=== PATIENT | female | born 1930 | race Caucasian/White ===

== ENCOUNTER 2017-09-05 14:05 | Inpatient (IN) | payer OTHER, BC ==
[2017-09-05 14:20] VITALS: BMI 43.2
[2017-09-05] MEDS ORDERED: SODIUM CHLORIDE 1,000 ML IV STA (14:22)
--- NOTE | 2017-09-05 14:22 | PDOC ---
Rapid Medical Evaluation Time Seen by Provider: 09/05/17 14:10 Medical Evaluation: Allergies Allergy/AdvReac Type Severity Reaction Status Date / Time No Known Allergies Allergy Verified 06/13/14 13:57 I have performed a brief in-person evaluation of this patient. The patient presents with a chief complaint of: SOB, cough, chest pain Pertinent physical exam findings: Diffuse, tight expiratory wheezing across all lung young. Congested sounding cough. Speaks 5 words per breath. I have ordered the following: Labs, EKG, CXR, duoneb, influenza The patient will proceed to the ED for further evaluation. She was sent in by Dr. Mensah for admission for pneumonia. Will most likely need IV steroids.
[2017-09-05] MEDS: ALBUTEROL SO4 2.5/IPRATROPIUM 0.5 INH SOL 3 ML VIAL.NEB. NEB SCH ×4 (14:32→15:15)
[2017-09-05 14:54] LABS: URINE APPEARANCE SLCLOUDY; URINE BILIRUBIN NEGATIVE (NEGATIVE); URINE BLOOD NEGATIVE (NEGATIVE); URINE COLOR YELLOW; URINE GLUCOSE (UA) NEGATIVE (NEGATIVE); URINE KETONE NEGATIVE (NEGATIVE); URINE NITRITE NEGATIVE (NEGATIVE); URINE PROTEIN NEGATIVE (NEGATIVE)
[2017-09-05 14:55] LABS: BASO % 0.3 % (0-2.0); EOS % 1.2 % (0-4.5); HEMATOCRIT 35.8 % (32.4-45.2); HEMOGLOBIN 11.5 GM/dL (10.7-15.3); LYMPH % 26.8 % (8-40); MCH 27.3 pg (25.7-33.7); MCHC 32.2 g/dl (32.0-36.0); MEAN CELL VOLUME 84.6 fl (80-96); MEAN PLT VOLUME 7.3 fl (7.5-11.1); MONO % 10.1 % (3.8-10.2); NEUT % 61.6 % (42.8-82.8); PLATELET COUNT 193 K/MM3 (134-434); RBC 4.23 M/mm3 (3.60-5.2); RDW 15.9 % (11.6-15.6); WHITE BLOOD COUNT 4.9 K/mm3 (4.0-10.0)
[2017-09-05 15:23] LABS: ALBUMIN 2.8 g/dl (3.4-5.0); ANION GAP 7 (8-16); BILIRUBIN,TOTAL 0.4 mg/dL (0.2-1.0); BLOOD UREA NITROGEN 20 mg/dL (7-18); CALCIUM 8.8 mg/dL (8.5-10.1); CHLORIDE 103 mmol/L (98-107); CO2 33 mmol/L (21-32); CREATININE 0.6 mg/dL (0.55-1.02); GLUCOSE,RANDOM 73 mg/dL (74-106); POTASSIUM 4.1 mmol/L (3.5-5.1); SGOT/AST 29 U/L (15-37); SGPT/ALT 13 U/L (12-78); SODIUM 143 mmol/L (136-145); TOT PROT 6.6 g/dl (6.4-8.2)
[2017-09-05 15:25] LABS: ALK PHOS 89 U/L (45-117)
[2017-09-05 15:30] LABS: INR 2.12 (0.82-1.09); PROTHROMBIN TIME (PATIENT) 23.9 SEC (9.98-11.88)
[2017-09-05 15:33] LABS: ACTIVATED PTT 37.1 SECONDS (26.9-34.4)
[2017-09-05 15:39] LABS: URINE LEUK ESTERASE 1+ (NEGATIVE)
[2017-09-05 15:42] LABS: EPI CELLS RARE /HPF (FEW)
--- NOTE | 2017-09-05 16:07 | EKG ---
Test Reason : Blood Pressure : / mmHG Vent. Rate : 057 BPM Atrial Rate : 057 BPM P-R Int : 184 ms QRS Dur : 128 ms QT Int : 476 ms P-R-T Axes : 061 -40 -10 degrees QTc Int : 463 ms SINUS BRADYCARDIA LEFT AXIS DEVIATION RIGHT BUNDLE BRANCH BLOCK MINIMAL VOLTAGE CRITERIA FOR LVH, MAY BE NORMAL VARIANT ABNORMAL ECG WHEN COMPARED WITH ECG OF 13-JUN-2014 15:32, NO SIGNIFICANT CHANGE WAS FOUND Confirmed by SUKUMAR ARCHULETA MD ([id number]) on 09/05/2017 4:06:39 PM Referred By: Confirmed By:SUKUMAR ARCHULETA MD
[2017-09-05] MEDS ORDERED: cefTRIAXone 2 GM/100 ML BAG (PRE-DOCKED) IVPB ONE (19:44)
[2017-09-05] MEDS ORDERED: AZITHROMYCIN IVPB 500 MG in DEXTROSE 5%-WATER - 250 ML IVPB ONE (19:47)
[2017-09-05] MEDS ORDERED: ALBUTEROL SO4 2.5/IPRATROPIUM 0.5 INH SOL 3 ML VIAL.NEB. NEB ONE ×2 (19:49→20:24)
[2017-09-05] MEDS ORDERED: predniSONE 20 MG TABLET (UD) PO ONE (19:52)
[2017-09-05] MEDS ORDERED: MAGNESIUM SULF 50% (8.12 MEQ/2 ML-1 GM VIAL) IVPB ONE (19:57)
--- NOTE | 2017-09-05 20:02 | PDOC ---
History of Present Illness - General Chief Complaint: Respiratory Stated Complaint: CHEST PAIN Time Seen by Provider: 09/05/17 14:10 - History of Present Illness Initial Comments: 09/05/17 20:02 Patient is an 83-year-old female with a history of atrial fibrillation, pulmonary embolism, hyperlipidemia, hypertension, sleep apnea presents with wheezing and shortness of breath since she woke up this morning. Patient had a cold for the past 2 weeks and recently complete a cours of valacyclovir for treratment of shingles, This morning she woke up with difficulty breathing and loud wheezing, She went to see Dr. Vidal who recommended she goes to the ER to get admitted for pneumonia. Patient is still wheezing loudly and looks uncomfortable. Multiple episodes of pneumonia in the past. 09/05/17 20:26 Past History - Past Medical History Allergies/Adverse Reactions: Allergies Allergy/AdvReac Type Severity Reaction Status Date / Time No Known Allergies Allergy Verified 09/05/17 14:20 Home Medications: Ambulatory Orders Atorvastatin Ca [Lipitor] 40 mg PO HS #0 tablet 08/16/13 Docusate Sodium [Colace -] 100 mg PO DAILY #0 capsule 08/16/13 Furosemide [Lasix -] 80 mg PO BIDLASIX #0 tablet 08/16/13 Multivit-Min/FA/Lycopene/Lut [Centrum Silver Tablet] 1 each PO DAILY #0 tablet 08/16/13 Sertraline HCl [Zoloft -] 25 mg PO DAILY #0 tablet 08/16/13 Vitamin B Complex [B Complex] 1 each PO DAILY #0 tablet 08/16/13 Amiodarone HCl [Cordarone -] 100 mg PO DAILY 09/05/17 Cholecalciferol (Vitamin D3) [Vitamin D3] 1,000 unit PO DAILY 09/05/17 Gabapentin 300 mg PO HS 09/05/17 Metoprolol Succinate [Toprol XL -] 25 mg PO DAILY 09/05/17 Potassium Chloride [K-Dur -] 20 meq PO DAILY 09/05/17 Valsartan [Diovan] 80 mg PO DAILY 09/05/17 Warfarin Na [Coumadin -] 0 mg PO DAILY@1800 09/05/17 Anemia: No Asthma: No Cancer: No Cardiac Disorders: Yes (ATRIAL FIBRILLATION) CVA: No COPD: No CHF: No Dementia: No Diabetes: No GI Disorders: No Disorders: Yes (BLADDER INCONTINENCE) HTN: Yes Hypercholesterolemia: Yes Liver Disease: No Seizures: No Thyroid Disease: No - Surgical History Abdominal Surgery: Yes Appendectomy: No Cardiac Surgery: No Cholecystectomy: No Lung Surgery: No Neurologic Surgery: No Orthopedic Surgery: Yes (RT HIP REPLACEMENT 2010, LT KNEE REPLACEMENT 05/16) - Suicide/Smoking/Psychosocial Hx Smoking Status: Yes Smoking History: Former smoker Have you smoked in the past 12 months: No Number of Cigarettes Smoked Daily: 0 If you are a former smoker, when did you quit?: 40 YRS Information on smoking cessation initiated: No Hx Alcohol Use: No Drug/Substance Use Hx: No Substance Use Type: None Hx Substance Use Treatment: No Respiratory Specific PMHX - Complaint Specific PMHX Bronchitis: Yes Pneumonia: No Pulmonary Embolus: No Review of Systems - Review of Systems Able to Perform ROS?: Yes Constitutional: No: Symptoms Reported HEENTM: No: Symptoms Reported Respiratory: Yes: See HPI Cardiac (ROS): No: Symptoms Reported ABD/GI: No: Symptoms Reported : No: Symptoms Reported Musculoskeletal: No: Symptoms Reported Integumentary: No: Symptoms Reported Neurological: No: Symptoms reported All Other Systems: Reviewed and Negative *Physical Exam - Vital Signs Last Vital Signs Temp Pulse Resp BP Pulse Ox 99.5 F 65 18 136/71 96 09/05/17 14:09 09/05/17 18:37 09/05/17 18:37 09/05/17 18:37 09/05/17 18:37 - Physical Exam General Appearance: Yes: Nourished, Appropriately Dressed, Moderate Distress HEENT: positive: EOMI, JOSE, Normal ENT Inspection Neck: negative: Tender Respiratory/Chest: positive: Labored Respiration, Wheezing. negative: Chest Tender Cardiovascular: positive: Regular Rhythm, Regular Rate, S1, S2 Gastrointestinal/Abdominal: positive: Normal Bowel Sounds, Soft, Protuberent. negative: Tender Musculoskeletal: positive: Normal Inspection Extremity: positive: Normal Capillary Refill, Normal Inspection Neurologic: positive: Fully Oriented, Alert, Normal Mood/Affect, Normal Response ED Treatment Course - LABORATORY CBC & Chemistry Diagram: 09/05/17 14:40 09/05/17 14:40 - ADDITIONAL ORDERS Additional order review: Laboratory Results 09/05/17 09/05/17 09/05/17 14:40 14:40 14:40 PT with INR INR PTT (Actin FS) Sodium 143 Potassium 4.1 Chloride 103 Carbon Dioxide 33 H Anion Gap 7 L BUN 20 H Creatinine 0.6 Creat Clearance w eGFR > 60 Random Glucose 73 L D Lactic Acid 0.7 Calcium 8.8 Total Bilirubin 0.4 AST 29 D ALT 13 D Alkaline Phosphatase 89 D Creatine Kinase 72 Troponin I 0.04 Total Protein 6.6 Albumin 2.8 L Urine Color Urine Appearance Urine pH Ur Specific [place] Urine Protein Urine Glucose (UA) Urine Ketones Urine Blood Urine Nitrite Urine Bilirubin Urine Urobilinogen Ur Leukocyte Esterase Urine WBC (Auto) Urine RBC (Auto) Ur Epithelial Cells Blood Type O POSITIVE Antibody Screen Negative 09/05/17 09/05/17 14:40 14:40 PT with INR 23.90 H INR 2.12 H D PTT (Actin FS) 37.1 H Sodium Potassium Chloride Carbon Dioxide Anion Gap BUN Creatinine Creat Clearance w eGFR Random Glucose Lactic Acid Calcium Total Bilirubin AST ALT Alkaline Phosphatase Creatine Kinase Troponin I Total Protein Albumin Urine Color Yellow Urine Appearance Slcloudy Urine pH 6.0 Ur Specific [place] 1.019 Urine Protein Negative Urine Glucose (UA) Negative Urine Ketones Negative Urine Blood Negative Urine Nitrite Negative Urine Bilirubin Negative Urine Urobilinogen 2.0 H Ur Leukocyte Esterase Negative Urine WBC (Auto) 3 Urine RBC (Auto) 14 Ur Epithelial Cells Rare Blood Type Antibody Screen 09/05/17 14:20 Influenza Types A,B Antigen (JULISA) - Final Nasopharyngeal Swab - Final 09/05/17 14:40 RBC 4.23 MCV 84.6 MCHC 32.2 RDW 15.9 H MPV 7.3 L D Neutrophils % 61.6 Lymphocytes % 26.8 D Monocytes % 10.1 Eosinophils % 1.2 Basophils % 0.3 - Medications Given in the ED: ED Medications Discontinued Medications Generic Name Dose Route Start Last Admin Trade Name Freq PRN Reason Stop Dose Admin Albuterol/Ipratropium 1 amp 09/05/17 14:30 09/05/17 15:15 Duoneb - NEB 09/05/17 15:16 1 amp Q15M DANN Administration Sodium Chloride 1,000 mls @ 1,000 mls/hr 09/05/17 14:22 09/05/17 18:18 Normal Saline - IV 09/05/17 15:21 Not Given ASDIR STA Medical Decision Making - Medical Decision Making 09/05/17 20:30 87 with wheezing and sob since waking up this morning. Patient looking extremely short of breath and showing work of breathing One treatment of duoneb by RME who also ordered all admit labs. Repeated duoneb and started antibiotics , prednisone and mag. 09/05/17 22:13 Chest xray: no official read but right lower lobe opacity. Patient admitted to med/surg under Dr. Barrios *DC/Admit/Observation/Transfer Diagnosis at time of Disposition: Pneumonia - Discharge Dispostion Admit: Yes - Referrals - Patient Instructions - Post Discharge Activity
--- NOTE | 2017-09-05 20:23 | PDOC ---
Attending Attestation - Resident Resident Name: Juanito Bennett - ED Attending Attestation I have performed the following: I have examined & evaluated the patient, The case was reviewed & discussed with the resident, I agree w/resident's findings & plan, Exceptions are as noted - HPI HPI: 09/05/17 20:19 Pt sent in by pcp for chest pain and sob. - Physicial Exam PE: 09/05/17 20:45 *Physical Exam General Appearance: Yes: Appropriately Dressed. No: Apparent Distress, Intoxicated HEENT: positive: EOMI, JOSE, Normal ENT Inspection, Normal Voice, TMs Normal, Pharynx Normal. negative: Pale Conjunctivae, Photophobia, Scleral Icterus (R), Scleral Icterus (L) Neck: positive: Trachea midline, Normal Thyroid, Supple. negative: Tender, Rigid, Carotid bruit, Stridor, Lymphadenopathy (R), Lymphadenopathy (L), Thyromegaly Respiratory/Chest: positive: Lungs coarse bilateral BS, with wheezing and rhonchi. + conversational dsypnea, mild distress Cardiovascular: positive: Regular Rhythm, Regular Rate, S1, S2. negative: Edema , JVD, Murmur, Bradycardia, Tachycardia Vascular Pulses: Dorsalis-Pedis (R): 2+, Doralis-Pedis (L): 2+ Gastrointestinal/Abdominal: positive: Normal Bowel Sounds, Flat, Soft. negative : Tender, Organomegaly, Pulsatile Mass, Increased Bowel Sounds, Decreased BS, Distended, Guarding, Rebound, Hernia, Hepatomegaly, Spleenomegaly Lymphatic: negative: Adenopathy, Tenderness Musculoskeletal: positive: Normal Inspection. negative: CVA Tenderness, Decreased Range of Motion Extremity: positive: Normal Capillary Refill, Normal Inspection, Normal Range of Motion, Pelvis Stable. negative: Tender, Pedal Edema, Swelling, Erythema Integumentary: positive: Normal Color, Dry, Warm. negative: Cyanotic, Erythema , Jaundice, Rash Neurologic: positive: life science teacher II-XII NML intact, Fully Oriented, Alert, Normal Mood/ Affect, Motor Strength 5/5. negative: EOM Palsy, Facial Droop, Sensory Deficit - Medical Decision Making 09/05/17 20:48 Pt to be admitted <Jordi Jovel - Last Filed: 09/05/17 20:47> - HPI HPI: The patient is a 87 year old female, with a significant past medical history of atrial fibrillation, pulmonary embolism, hyperlipidemia, hypertension, sleep apnea, who presents to the emergency department sent by Dr. Boyer for pneumonia admission. She reports shortness of breath, chest tightness and wheezing for a few days, worse today. She denies chest pain, headache and dizziness. She denies fever, chills, nausea , vomit, diarrhea and constipation. She denies dysuria, frequency, urgency and hematuria. Allergies: NKDA 09/05/17 20:50 Documentation prepared by Neelam Nava, acting as medical grade shoemaker for Jordi Jovel DO <Neelam Nava - Last Filed: 09/05/17 20:50>
[2017-09-05] MEDS ORDERED: MAGNESIUM SULF 50% (8.12 MEQ/2 ML-1 GM VIAL) ONE (20:24)
[2017-09-05] MEDS ORDERED: predniSONE 20 MG TABLET (UD) ONE (20:24)
[2017-09-05] MEDS ORDERED: CEFTRIAXONE 2 GM/100 ML BAG IVPB ONE (20:24)
[2017-09-05] MEDS ORDERED: AZITHROMYCIN IVPB 250 ML IVPB ONE (20:24)
--- NOTE | 2017-09-05 23:17 | HP ---
CHIEF COMPLAINT: cough, SOB, wheezing PCP: Young HISTORY OF PRESENT ILLNESS: This is an 87 year old female with a past medical history of PNA, Afib, PE, HLD , HTN, sleep apnea presented to the ED with a 2 week history of cough. She states that it has been getting progressively worse and when she awoke this morning she felt extremely SOB. She was treated for shingles 2 weeks ago. She denies chest pain, palpitations. Pt reports c/o constipation, she described her BMs as difficult and the feces as little hard balls. ER course was notable for: (1) WBC 4.9, Lactic Acid 0.7 (2) CXR with RLL density Recent Travel: pt denies PAST MEDICAL HISTORY: Pneumonia pulmonary embolism sleep apnea Atrial fibrillation, HLD, HTN PAST SURGICAL HISTORY: B/L TKR, L THR, L ureter stent Social History: Smoking: "smoked as a young girl" Alcohol: pt denies Drugs: pt denies Family History: mother age 83, DM, PVD father age 80, "water on lungs" 2 brothers in their 70s, unknown med history 1 sister age 87, old age 1 sister and 1 brother alive and well in their 90s Allergies No Known Allergies Allergy (Verified 09/05/17 14:20) HOME MEDICATIONS: 3 Medication Instructions Recorded Atorvastatin Ca [Lipitor] 40 mg PO HS #0 tablet 08/16/13 Docusate Sodium [Colace -] 100 mg PO DAILY #0 capsule 08/16/13 Furosemide [Lasix -] 80 mg PO BIDLASIX #0 tablet 08/16/13 Multivit-Min/FA/Lycopene/Lut 1 each PO DAILY #0 tablet 08/16/13 [Centrum Silver Tablet] Sertraline HCl [Zoloft -] 25 mg PO DAILY #0 tablet 08/16/13 Vitamin B Complex [B Complex] 1 each PO DAILY #0 tablet 08/16/13 Amiodarone HCl [Cordarone -] 100 mg PO DAILY 09/05/17 Cholecalciferol (Vitamin D3) 1,000 unit PO DAILY 09/05/17 [Vitamin D3] Gabapentin 300 mg PO HS 09/05/17 Metoprolol Succinate [Toprol XL -] 25 mg PO DAILY 09/05/17 Potassium Chloride [K-Dur -] 20 meq PO DAILY 09/05/17 Valsartan [Diovan] 80 mg PO DAILY 09/05/17 Warfarin Na [Coumadin -] 0 mg PO DAILY@1800 09/05/17 REVIEW OF SYSTEMS CONSTITUTIONAL: Absent: fever, chills, diaphoresis, generalized weakness, malaise, loss of appetite, weight change HEENT: Absent: rhinorrhea, nasal congestion, throat pain, throat swelling, difficulty swallowing, mouth swelling, ear pain, eye pain, visual changes CARDIOVASCULAR: Absent: chest pain, syncope, palpitations, irregular heart rate, lightheadedness , peripheral edema RESPIRATORY: Present: cough, shortness of breath, dyspnea with exertion, wheezing Absent: orthopnea, stridor, hemoptysis GASTROINTESTINAL: Present: constipation Absent: abdominal pain, abdominal distension, nausea, vomiting, diarrhea, melena , hematochezia GENITOURINARY: Absent: dysuria, frequency, urgency, hesitancy, hematuria, flank pain, genital pain MUSCULOSKELETAL: Absent: myalgia, arthralgia, joint swelling, back pain, neck pain SKIN: Absent: rash, itching, pallor HEMATOLOGIC/IMMUNOLOGIC: Absent: easy bleeding, easy bruising, lymphadenopathy, frequent infections ENDOCRINE: Absent: unexplained weight gain, unexplained weight loss, heat intolerance, cold intolerance NEUROLOGIC: Absent: headache, focal weakness or paresthesias, dizziness, unsteady gait, seizure, mental status changes, bladder or bowel incontinence PSYCHIATRIC: Absent: anxiety, depression, suicidal or homicidal ideation, hallucinations. PHYSICAL EXAMINATION Vital Signs - 24 hr 3 09/05/17 09/05/17 09/05/17 14:09 18:34 18:37 Temperature 99.5 F Pulse Rate 59 L Pulse Rate [ 65 Apical] Respiratory 20 18 Rate Blood Pressure 135/74 Blood Pressure 136/71 [Right Arm] O2 Sat by Pulse 95 96 96 Oximetry (%) GENERAL: Awake, alert, and fully oriented, in no acute distress. HEAD: Normal with no signs of trauma. EYES: Pupils equal, round and reactive to light, extraocular movements intact, sclera anicteric, conjunctiva clear. No lid lag. EARS, NOSE, THROAT: Ears normal, nares patent, oropharynx clear without exudates. Moist mucous membranes. NECK: Normal range of motion, supple without lymphadenopathy, JVD, or masses. LUNGS: Breath sounds with inspiratory and expiratory wheezing bilaterally. No accessory muscle use. HEART: Regular rate and rhythm, normal S1 and S2 without murmur, rub or gallop. ABDOMEN: Soft, nontender, not distended, normoactive bowel sounds, no guarding, no rebound, no masses. No hepatomegaly or splenomegaly. MUSCULOSKELETAL: Normal range of motion at all joints. No bony deformities or tenderness. No CVA tenderness. UPPER EXTREMITIES: 2+ pulses, warm, well-perfused. No cyanosis. No clubbing. No peripheral edema. LOWER EXTREMITIES: 2+ pulses, warm, well-perfused. No calf tenderness. No peripheral edema. NEUROLOGICAL: Cranial nerves II-XII intact. Normal speech. Normal gait. PSYCHIATRIC: Cooperative. Good eye contact. Appropriate mood and affect. SKIN: Warm, dry, normal turgor, no rashes or lesions noted, normal capillary refill. Laboratory Results - last 24 hr 3 09/05/17 09/05/17 09/05/17 14:40 14:40 14:40 WBC 4.9 RBC 4.23 Hgb 11.5 Hct 35.8 MCV 84.6 MCH 27.3 MCHC 32.2 RDW 15.9 H Plt Count 193 MPV 7.3 L D Neutrophils % 61.6 Lymphocytes % 26.8 D Monocytes % 10.1 Eosinophils % 1.2 Basophils % 0.3 PT with INR 23.90 H INR 2.12 H D PTT (Actin FS) 37.1 H Sodium Potassium Chloride Carbon Dioxide Anion Gap BUN Creatinine Creat Clearance w eGFR Random Glucose Lactic Acid Calcium Total Bilirubin AST ALT Alkaline Phosphatase Creatine Kinase Troponin I Total Protein Albumin Urine Color Yellow Urine Appearance Slcloudy Urine pH 6.0 Ur Specific [place] 1.019 Urine Protein Negative Urine Glucose (UA) Negative Urine Ketones Negative Urine Blood Negative Urine Nitrite Negative Urine Bilirubin Negative Urine Urobilinogen 2.0 H Ur Leukocyte Esterase Negative Urine WBC (Auto) 3 Urine RBC (Auto) 14 Ur Epithelial Cells Rare Blood Type Antibody Screen 3 09/05/17 09/05/17 09/05/17 14:40 14:40 14:40 WBC RBC Hgb Hct MCV MCH MCHC RDW Plt Count MPV Neutrophils % Lymphocytes % Monocytes % Eosinophils % Basophils % PT with INR INR PTT (Actin FS) Sodium 143 Potassium 4.1 Chloride 103 Carbon Dioxide 33 H Anion Gap 7 L BUN 20 H Creatinine 0.6 Creat Clearance w eGFR > 60 Random Glucose 73 L D Lactic Acid 0.7 Calcium 8.8 Total Bilirubin 0.4 AST 29 D ALT 13 D Alkaline Phosphatase 89 D Creatine Kinase 72 Troponin I 0.04 Total Protein 6.6 Albumin 2.8 L Urine Color Urine Appearance Urine pH Ur Specific [place] Urine Protein Urine Glucose (UA) Urine Ketones Urine Blood Urine Nitrite Urine Bilirubin Urine Urobilinogen Ur Leukocyte Esterase Urine WBC (Auto) Urine RBC (Auto) Ur Epithelial Cells Blood Type O POSITIVE Antibody Screen Negative ECG Sinus bradycardia vent rate 57, QTC 463 RBBB, left axis deviation minimal voltage criteria for LVH No change when compared with ECG of 06/13/14 Radiology Reports CXR- RL/ML density noted, official read pending ASSESSMENT/PLAN: 87yF with PMH PNA, Afib, PE, HLD, HTN, sleep apnea presented to the ED with a 2 week history of worsening cough and SOB this am. Pneumonia, community acquired - cont ceftriaxone, azithromycin - solumedrol 40mg Q6h for active wheezing - duoneb QID standing with albuterol PRN - consider CT chest Afib/PE - cont home warfarin, therapeutic on same - cont rate control with toprol and amiodarone HTN - cont toprol, diovan and lasix HLD - cont home lipitor Constipation - cont home pericolace - add miralax DVT PPX - cont home coumadin FEN - defer IVF given h/o being on lasix, did not take lasix today, will not give in ED given BUN slightly elevated - BMP in AM - low sodium diet as tolerated. Dispo: Pt currently requires inpatient management of her emergent condition. Visit type - Emergency Visit Emergency Visit: Yes ED Registration Date: 09/05/17 Care time: The patient presented to the Emergency Department on the above date and was hospitalized for further evaluation of their emergent condition. - New Patient This patient is new to me today: Yes Date on this admission: 09/05/17 - Critical Care Critical Care patient: No
[2017-09-05] MEDS ORDERED: methylPREDNISolone NA SUCC 125 MG/2 ML VIAL ONE (23:22)
[2017-09-05] MEDS: methylPREDNISolone NA SUCC 40 MG/1 ML VIAL IVPUSH ONE ×2 (23:36)
[2017-09-06] MEDS ORDERED: WARFARIN NA 2 MG TABLET (UD) PO ONE (00:02)
[2017-09-06] MEDS ORDERED: ALBUTEROL SO4 0.083% IH SOL 2.5 MG/3 ML VIAL.NEB. NEB PRN (00:06)
[2017-09-06] MEDS: methylPREDNISolone NA SUCC 40 MG/1 ML VIAL IVPUSH SCH ×4 (02:34→21:00)
[2017-09-06] MEDS ORDERED: ALBUTEROL SO4 0.083% IH SOL 2.5 MG/3 ML VIAL.NEB. NEB ONE (05:37)
[2017-09-06 07:44] LABS: BASO % 0.1 % (0-2.0); HEMATOCRIT 36.3 % (32.4-45.2); HEMOGLOBIN 11.6 GM/dL (10.7-15.3); INR 2.04 (0.82-1.09); LYMPH % 18.1 % (8-40); MCH 27.1 pg (25.7-33.7); MCHC 32.1 g/dl (32.0-36.0); MEAN CELL VOLUME 84.4 fl (80-96); MEAN PLT VOLUME 7.9 fl (7.5-11.1); MONO % 1.2 % (3.8-10.2); NEUT % 80.6 % (42.8-82.8); PLATELET COUNT 191 K/MM3 (134-434)
[2017-09-06 08:13] LABS: CHLORIDE 102 mmol/L (98-107); POTASSIUM 4.2 mmol/L (3.5-5.1); SODIUM 140 mmol/L (136-145)
[2017-09-06 08:18] LABS: ANION GAP 5 (8-16); BLOOD UREA NITROGEN 14 mg/dL (7-18); CALCIUM 8.3 mg/dL (8.5-10.1); CO2 33 mmol/L (21-32); CREATININE 0.6 mg/dL (0.55-1.02); GLUCOSE,RANDOM 166 mg/dL (74-106); MAGNESIUM 2.5 mg/dL (1.8-2.4); PHOSPHOROUS 3.7 mg/dL (2.5-4.9)
[2017-09-06] MEDS: AMIODARONE HCL 200 MG TABLET (FP) PO SCH (09:57)
[2017-09-06] MEDS: VALSARTAN 80 MG TABLET (UD) PO SCH (10:01)
[2017-09-06] MEDS: POTASSIUM CHLORIDE TABS 20 MEQ TABLET.ER (FP) PO SCH (10:01)
[2017-09-06] MEDS: FUROSEMIDE 40 MG TABLET (FP) PO SCH (10:02)
[2017-09-06] MEDS: POLYETHYLENE GLYCOL 3350 119 GM BTL PO SCH (10:03)
[2017-09-06] MEDS: METOPROLOL SUCCINATE 25 MG TAB.SR.24H (FP) PO SCH (10:03)
[2017-09-06] MEDS: MULTIVITAMINS THER W-MINERALS COMBO TABLET (FP) PO SCH (10:03)
[2017-09-06] MEDS: CHOLECALCIFEROL (VITAMIN D3) 1,000 UNIT TABLET (FP) PO SCH (10:04)
[2017-09-06] MEDS: SERTRALINE HCL 25 MG TABLET (FP) PO SCH (10:04)
[2017-09-06] MEDS: VITAMIN B COMPLEX W/C COMBO TABLET (FP) PO SCH (10:04)
--- NOTE | 2017-09-06 11:13 | PN ---
Progress Note (short form) - Note Progress Note: Patient sen and examined Chart reviewed. Currently sitting up in bed, still coughing and complaining of anterior chest discomfort related to cough. No hemoptysis. Labs, radiologic testing and progress notes reviewed. Selected Entries 09/05/17 09/06/17 09/06/17 14:09 02:00 09:52 Temperature 97.9 F Pulse Rate 75 Respiratory 19 Rate Blood Pressure 135/74 O2 Sat by Pulse 99 Oximetry (%) Oxygen Delivery Nasal Cannula Method Oxygen Flow 2 Rate Weight 214 lb Laboratory Tests 09/05/17 09/05/17 09/06/17 14:40 14:40 07:20 WBC 3.0 L D Hgb 11.6 Hct 36.3 Plt Count 191 INR Sodium Potassium Chloride Carbon Dioxide BUN Creatinine Random Glucose Calcium Phosphorus Magnesium Total Bilirubin 0.4 AST 29 D ALT 13 D Alkaline Phosphatase 89 D Creatine Kinase 72 Troponin I 0.04 Total Protein 6.6 Albumin 2.8 L Urine Color Yellow Urine Appearance Slcloudy Urine pH 6.0 Ur Specific [place] 1.019 Urine Protein Negative Urine Glucose (UA) Negative Urine Ketones Negative Urine Blood Negative Urine Nitrite Negative Urine Bilirubin Negative Urine Urobilinogen 2.0 H Ur Leukocyte Esterase Negative Urine WBC (Auto) 3 Urine RBC (Auto) 14 Ur Epithelial Cells Rare 09/06/17 09/06/17 07:20 07:20 WBC Hgb Hct Plt Count INR 2.04 H Sodium 140 Potassium 4.2 Chloride 102 Carbon Dioxide 33 H BUN 14 D Creatinine 0.6 Random Glucose 166 H D Calcium 8.3 L Phosphorus 3.7 Magnesium 2.5 H Total Bilirubin AST ALT Alkaline Phosphatase Creatine Kinase Troponin I Total Protein Albumin Urine Color Urine Appearance Urine pH Ur Specific [place] Urine Protein Urine Glucose (UA) Urine Ketones Urine Blood Urine Nitrite Urine Bilirubin Urine Urobilinogen Ur Leukocyte Esterase Urine WBC (Auto) Urine RBC (Auto) Ur Epithelial Cells Chest Diffuse expiratory wheezing with increased expiratory phase of respiration Cor Irreg No new murmur Abd Obese Distended non-tender Ext No edema No phlebitis Neuro No new focal deficit Assessment and Plan Acute exacerbation of COPD Possible LLL infiltrate Continue in steroids and antibiotics as ordered AFib On warfarin Follow INR Rate controled Low wbc 3.0 m Re-check Hypoalbuminemia 2.8 Monitor Likely related to acute/chronic disease status as well as nutritional factors Possible right sided CHF HTN Stable HPL Stable BULL Stable Monitor Obesity OA S/P b/l TKRs and Left THR Left ureteral procedure Continue current Rx
--- NOTE | 2017-09-06 13:41 | CON.PULM ---
Consult Consult Specialty:: PULMONARY Referred by:: MARIA G Reason for Consultation:: COUGH/WHEEZE/SOB - History of Present Illness Chief Complaint: COUGH/WHEEZE/SOB History of Present Illness: This is an 87 year old female with a past medical history of PNA, Afib, PE, HLD , HTN, sleep apnea presented to the ED with a 2 week history of cough. She states that it has been getting progressively worse and when she awoke this morning she felt extremely SOB. She was treated for shingles 2 weeks ago. She denies chest pain, palpitations. Patient states she gets ill with breathing problems every year. 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 Cardio/Vascular: Yes: AFIB, CAD, CHF, HTN, Hyperlipdemia Pulmonary: Yes: Sleep Apnea, Other (PE) Gastrointestinal: No: Ascites Hepatobiliary: No: Cirrhosis Renal/: No: Renal Failure Reproductive: Yes: Postmenopausal ...: No Heme/Onc: Yes: Anemia - Alcohol/Substance Use Hx Alcohol Use: No - Smoking History Smoking history: Former smoker Have you smoked in the past 12 months: No Aproximately how many cigarettes per day: 0 If you are a former smoker, when did you quit?: 40 YRS - Social History ADL: Independent Place of : [facility] [employer] History of Recent Travel: No Home Medications - Allergies Allergies/Adverse Reactions: Allergies Allergy/AdvReac Type Severity Reaction Status Date / Time No Known Allergies Allergy Verified 09/05/17 14:20 - Home Medications Home Medications: Ambulatory Orders Atorvastatin Ca [Lipitor] 40 mg PO HS #0 tablet 08/16/13 Docusate Sodium [Colace -] 100 mg PO DAILY #0 capsule 08/16/13 Furosemide [Lasix -] 80 mg PO BIDLASIX #0 tablet 08/16/13 Multivit-Min/FA/Lycopene/Lut [Centrum Silver Tablet] 1 each PO DAILY #0 tablet 08/16/13 Sertraline HCl [Zoloft -] 25 mg PO DAILY #0 tablet 08/16/13 Vitamin B Complex [B Complex] 1 each PO DAILY #0 tablet 08/16/13 Amiodarone HCl [Cordarone -] 100 mg PO DAILY 09/05/17 Cholecalciferol (Vitamin D3) [Vitamin D3] 1,000 unit PO DAILY 09/05/17 Gabapentin 300 mg PO HS 09/05/17 Metoprolol Succinate [Toprol XL -] 25 mg PO DAILY 09/05/17 Potassium Chloride [K-Dur -] 20 meq PO DAILY 09/05/17 Valsartan [Diovan] 80 mg PO DAILY 09/05/17 Warfarin Na [Coumadin -] 0 mg PO DAILY@1800 09/05/17 Family Disease History - Family Disease History Family History: Unremarkable Review of Systems - Review of Systems Constitutional: reports: Lethargy. denies: Fever Eyes: denies: Blurred Vision HENT: denies: Difficult Swallowing Neck: denies: Decreased ROM Cardiovascular: reports: Chest Pain, Edema, Shortness of Breath Respiratory: reports: Cough, Exercise Intolerance, SOB, SOB on Exertion, Wheezing. denies: Hemoptysis Gastrointestinal: denies: Abdominal Pain Genitourinary: denies: Burning Breasts: reports: No Symptoms Reported Musculoskeletal: reports: No Symptoms Integumentary: reports: No Symptoms Neurological: reports: No Symptoms Physical Exam Vital Sings: Vital Signs Temperature 97.9 F 09/06/17 09:52 Pulse Rate 75 09/06/17 09:52 Respiratory Rate 19 09/06/17 09:52 Blood Pressure 135/74 09/06/17 09:52 O2 Sat by Pulse Oximetry (%) 98 09/06/17 09:52 Constitutional: Yes: Mild Distress Eyes: Yes: EOM Intact HENT: Yes: Normocephalic Neck: Yes: Trachea Midline Cardiovascular: Yes: S1, S2 Respiratory: Yes: Poor Air Entry, Wheezes Gastrointestinal: Yes: Normal Bowel Sounds, Soft, Abdomen, Obese Edema: LLE: 2+, RLE: 2+ Neurological: Yes: Alert Labs: CBC, BMP 09/06/17 07:20 09/06/17 07:20 rest reviewed Imaging - Results Chest X-ray: Report Reviewed, Image Reviewed Problem List - Problems (1) Acute bronchitis Code(s): J20.9 - ACUTE BRONCHITIS, UNSPECIFIED (2) Asthma Code(s): J45.909 - UNSPECIFIED ASTHMA, UNCOMPLICATED (3) ASHD (arteriosclerotic heart disease) Code(s): I25.10 - ATHSCL HEART DISEASE OF [place] CORONARY ARTERY W/O ANG PCTRS (4) Atrial fibrillation Code(s): I48.91 - UNSPECIFIED ATRIAL FIBRILLATION (5) HTN (hypertension) Code(s): I10 - ESSENTIAL (PRIMARY) HYPERTENSION Assessment/Plan ACUTE ASTHMATIC BRONCHITIS R/O COMPONENT OF CHF H/O AF/ASHD/DM/HTN/HPL/OBESITY/OSAS IV STEROIDS/BRONCHODILATORS/ANTIBIOTICS DAILY WEIGHTS/NA RESTRICTED DIET/TRIAL OF DIURETICS CHECK BNP/CONSIDER CARDIAC CONSULT Jennifer MEADE MD
[2017-09-06] MEDS: ALBUTEROL SO4 2.5/IPRATROPIUM 0.5 INH SOL 3 ML VIAL.NEB. NEB SCH ×3 (14:50→21:10)
[2017-09-06] MEDS ORDERED: WARFARIN NA 3 MG TABLET PO SCH (18:00)
[2017-09-06] MEDS ORDERED: DOCUSATE SODIUM 100 MG CAPSULE (FP) PO ONE (22:07)
[2017-09-06] MEDS ORDERED: GABAPENTIN 100 MG CAPSULE (FP) ONE ×2 (22:07→22:08)
[2017-09-06] MEDS ORDERED: ATORVASTATIN CA 40 MG TABLET (FP) ONE (22:07)
[2017-09-06] MEDS: DOCUSATE SODIUM 100 MG CAPSULE (FP) PO SCH (22:13)
[2017-09-06] MEDS: ATORVASTATIN CA 40 MG TABLET (FP) PO SCH (22:13)
[2017-09-06] MEDS: GABAPENTIN 300 MG CAPSULE (FP) PO SCH (22:13)
[2017-09-07] MEDS ORDERED: ALBUTEROL SO4 2.5/IPRATROPIUM 0.5 INH SOL 3 ML VIAL.NEB. NEB ONE ×4 (00:24→11:49)
[2017-09-07] MEDS: ALBUTEROL SO4 2.5/IPRATROPIUM 0.5 INH SOL 3 ML VIAL.NEB. NEB SCH ×5 (00:30→23:07)
[2017-09-07] MEDS ORDERED: methylPREDNISolone NA SUCC 40 MG/1 ML VIAL ONE ×3 (01:42→09:42)
[2017-09-07] MEDS: methylPREDNISolone NA SUCC 40 MG/1 ML VIAL IVPUSH SCH ×4 (03:00→21:20)
[2017-09-07 07:57] LABS: INR 3.01 (0.82-1.09)
[2017-09-07 08:04] LABS: ALBUMIN 3.1 g/dl (3.4-5.0); ANION GAP 10 (8-16); BLOOD UREA NITROGEN 21 mg/dL (7-18); CALCIUM 8.5 mg/dL (8.5-10.1); CHLORIDE 102 mmol/L (98-107); CO2 29 mmol/L (21-32); GLUCOSE,RANDOM 136 mg/dL (74-106); MAGNESIUM 2.4 mg/dL (1.8-2.4); POTASSIUM 4.5 mmol/L (3.5-5.1); SODIUM 141 mmol/L (136-145)
[2017-09-07 08:07] LABS: ALK PHOS 84 U/L (45-117); BILIRUBIN,TOTAL 0.4 mg/dL (0.2-1.0); CREATININE 0.8 mg/dL (0.55-1.02); SGOT/AST 29 U/L (15-37); SGPT/ALT 15 U/L (12-78); TOT PROT 7.3 g/dl (6.4-8.2)
[2017-09-07 08:38] LABS: HEMATOCRIT 36.5 % (32.4-45.2); HEMOGLOBIN 11.8 GM/dL (10.7-15.3); MCH 27.6 pg (25.7-33.7); MCHC 32.4 g/dl (32.0-36.0); MEAN CELL VOLUME 85.2 fl (80-96); MEAN PLT VOLUME 8.6 fl (7.5-11.1); RBC 4.28 M/mm3 (3.60-5.2); RDW 15.7 % (11.6-15.6); WHITE BLOOD COUNT 9.7 K/mm3 (4.0-10.0)
--- NOTE | 2017-09-07 09:38 | CON.CARD ---
Cardiology Consult (text) - Consultation Consultation Note: Cardiology Consult Dictated IMP: PAF Chronic PHTN Acute asthmatic bronchitis REC: 1. Acute Bronchitis: Steroid taper as per pulmonary 2. AF: in sinus, continue low dose amio, INR goal 2-3.
--- NOTE | 2017-09-07 10:09 | CONS ---
DATE OF CONSULTATION: 09/07/2017 CONSULTATION REQUESTED BY: Quinton Franco MD, for history of paroxysmal atrial fibrillation. HISTORY: The patient is an 87-year-old female with past medical history of paroxysmal atrial fibrillation on Coumadin, chronic pulmonary hypertension, nonobstructive coronary disease. She is now admitted for several days of expiratory wheezing associated with dry cough. She denies fevers or chills. She denies increased edema, PND, orthopnea. She does have some chest tightness which occurs in the setting of this chronic cough. She was seen and examined by Pulmonary in consultation and admitted acute asthmatic bronchitis. Influenza titers were negative. She is alert and oriented in the ER. PAST MEDICAL HISTORY: As above and also includes obesity, chronic hypertension, neuropathy, vitamin B deficiency, depression, and hyperlipidemia. ALLERGIES: She has no known drug allergies. MEDICATIONS: Her home medications include Coumadin, Diovan 80 mg daily, Neurontin 300 mg daily, vitamin D3, amiodarone 100 daily, vitamin B complex, Zoloft 25 daily, K-Dur supplements, multivitamin, Toprol-XL 25 daily, Lasix 80 mg p.o. b.i.d., Colace, and atorvastatin 40. FAMILY HISTORY: Noncontributory. SOCIAL HISTORY: Former smoker, lives alone. PHYSICAL EXAMINATION: General: Alert and oriented. Vital Signs: Temperature 97.5, blood pressure 132/77, O2 of 98 on 2 L. Neck: No bruits, no JVD. Heart: S1, S2, regular. Chest: Mild expiratory wheezing. No rales. Abdomen: Obese, soft, nontender. Extremities: No edema. CHEST X-RAY: No evidence of CHF or large effusion. No obvious infiltrate. ELECTROCARDIOGRAM: Sinus bradycardia with right bundle branch block, borderline LVH. LABORATORY: White count 9, hematocrit 36.5. Platelet count was 191 yesterday, pending today. INR 3.01. Sodium 141, potassium 4.5. Creatinine 0.8. LFTs normal. CK and troponin were negative x1 set. IMPRESSION: 1. Asthmatic bronchitis. 2. Paroxysmal atrial fibrillation. 3. Chronic pulmonary hypertension. PLAN: 1. Bronchitis: Steroid taper, nebulizers, and supplemental O2 as per Pulmonary. 2. Paroxysmal atrial fibrillation: Currently in sinus. Continue low-dose amiodarone which she has been on chronically for years. Continue Coumadin for INR 2-3. 3. Pulmonary hypertension: Chronic and multifactorial due to obesity, diastolic dysfunction. 4. Continue Lasix. Will follow. Kimberley [id number]
--- NOTE | 2017-09-07 10:44 | PN ---
Progress Note, Physician Chief Complaint: Patient very upset about boarding in the ED and this is her main complaint. Says she is still short of breath with severe coughing. No cp or n/v. - Current Medication List Current Medications: Active Medications Albuterol Sulfate (Ventolin 0.083% Nebulizer Soln -) 1 amp NEB Q4H PRN PRN Reason: SHORT OF BREATH/WHEEZING Last Admin: 09/06/17 06:15 Dose: 1 amp Albuterol/Ipratropium (Duoneb -) 1 amp NEB QIDR [facility] Last Admin: 09/07/17 07:30 Dose: 1 amp Amiodarone HCl (Cordarone -) 100 mg PO DAILY [facility] Last Admin: 09/06/17 09:57 Dose: 100 mg Atorvastatin Calcium (Lipitor -) 40 mg PO HS [facility] Last Admin: 09/06/17 22:13 Dose: 40 mg Cholecalciferol (Vitamin D3 -) 1,000 unit PO DAILY [facility] Last Admin: 09/06/17 10:04 Dose: 1,000 unit Docusate Sodium (Colace -) 200 mg PO HS [facility] Last Admin: 09/06/17 22:13 Dose: 200 mg Furosemide (Lasix -) 80 mg PO DAILY [facility] Last Admin: 09/06/17 10:02 Dose: 80 mg Gabapentin (Neurontin -) 300 mg PO HS [facility] Last Admin: 09/06/17 22:13 Dose: 300 mg Methylprednisolone Sodium Succinate (Solu-Medrol -) 40 mg IVPUSH Q6H-IV [facility] Last Admin: 09/07/17 10:00 Dose: 40 mg Metoprolol Succinate (Toprol Xl -) 25 mg PO DAILY [facility] Last Admin: 09/06/17 10:03 Dose: 25 mg Multivitamins (Total B With C -) 1 each PO DAILY [facility] Last Admin: 09/06/17 10:04 Dose: 1 each Multivitamins/Minerals (Theragran-M) 1 each PO DAILY [facility] Last Admin: 09/06/17 10:03 Dose: 1 each Polyethylene Glycol (Miralax (For Daily Use) -) 17 gm PO DAILY [facility] Last Admin: 09/06/17 10:03 Dose: Not Given Potassium Chloride (K-Dur -) 20 meq PO DAILY [facility] Last Admin: 09/06/17 10:01 Dose: 20 meq Sertraline HCl (Zoloft -) 25 mg PO DAILY [facility] Last Admin: 09/06/17 10:04 Dose: 25 mg Valsartan (Diovan -) 80 mg PO DAILY [facility] Last Admin: 09/06/17 10:01 Dose: 80 mg Warfarin Sodium (Coumadin -) 4 mg PO MoWeFr@1800 [facility] Warfarin Sodium (Coumadin -) 3 mg PO SuTuThSa@1800 [facility] Last Admin: 09/06/17 18:11 Dose: 3 mg - Objective Vital Signs: Vital Signs Temperature 36.4 C L 09/07/17 06:55 Pulse Rate 73 09/07/17 06:55 Respiratory Rate 19 09/06/17 18:00 Blood Pressure 182/79 09/07/17 06:55 O2 Sat by Pulse Oximetry (%) 99 09/07/17 06:55 Constitutional: Yes: Obese (morbid), Other (frustrated on exam) Cardiovascular: Yes: Regular Rate and Rhythm. No: Gallop, Murmur, Rub Respiratory: Yes: Regular, Cough, Diminished, On Nasal O2, Wheezes. No: CTA Bilaterally, Rales, Rhonchi Gastrointestinal: Yes: Normal Bowel Sounds, Soft. No: Distention, Tenderness Extremities: Yes: WNL Edema: Yes Edema: LLE: Trace, RLE: Trace Labs: CBC, BMP 09/07/17 07:20 09/07/17 07:20 INR, PTT INR 3.01 (0.82-1.09) H D 09/07/17 07:20 Problem List - Problems (1) Acute bronchitis Assessment/Plan: -family says unaware of COPD exacerbation -presenting like COPD vs chronic bronchitis -appreciate pulmonary assistance -continue antibiotics, steroids, duonebs -monitor for improvement Code(s): J20.9 - ACUTE BRONCHITIS, UNSPECIFIED Qualifiers: Bronchitis organism: unspecified organism Qualified Code(s): J20.9 - Acute bronchitis, unspecified (2) CHF (congestive heart failure) Assessment/Plan: -not in exacerbation -continue lasix Code(s): I50.9 - HEART FAILURE, UNSPECIFIED Qualifiers: Congestive heart failure type: diastolic Congestive heart failure chronicity: chronic Qualified Code(s): I50.32 - Chronic diastolic (congestive ) heart failure (3) ASHD (arteriosclerotic heart disease) Assessment/Plan: -quiescent -appreciate cardiology assistance and case discussed -continue home regimen Code(s): I25.10 - ATHSCL HEART DISEASE OF [place] CORONARY ARTERY W/O ANG PCTRS (4) Atrial fibrillation Assessment/Plan: -continue amiodarone, toprol xl, and coumadin -monitor INR -rhythm controlled Code(s): I48.91 - UNSPECIFIED ATRIAL FIBRILLATION Qualifiers: Atrial fibrillation type: chronic Qualified Code(s): I48.2 - Chronic atrial fibrillation (5) HTN (hypertension) Assessment/Plan: -elevated, but patient also very upset and anxious today -explained and attempted to calm with limited success -will continue home regimen -will monitor -note that patient is also on high dose steroids which can exacerbate hypertension -may need prn management in the hospital but will re-evaluate if needs adjustment of 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
[2017-09-07] MEDS: VITAMIN B COMPLEX W/C COMBO TABLET (FP) PO SCH (11:07)
[2017-09-07] MEDS: MULTIVITAMINS THER W-MINERALS COMBO TABLET (FP) PO SCH (11:07)
[2017-09-07] MEDS: POTASSIUM CHLORIDE TABS 20 MEQ TABLET.ER (FP) PO SCH (11:07)
[2017-09-07] MEDS: POLYETHYLENE GLYCOL 3350 119 GM BTL PO SCH (11:07)
[2017-09-07] MEDS: CHOLECALCIFEROL (VITAMIN D3) 1,000 UNIT TABLET (FP) PO SCH (11:07)
[2017-09-07] MEDS: SERTRALINE HCL 25 MG TABLET (FP) PO SCH (11:07)
[2017-09-07] MEDS: FUROSEMIDE 40 MG TABLET (FP) PO SCH (11:07)
[2017-09-07] MEDS: AMIODARONE HCL 200 MG TABLET (FP) PO SCH (11:07)
[2017-09-07] MEDS: METOPROLOL SUCCINATE 25 MG TAB.SR.24H (FP) PO SCH (11:07)
[2017-09-07] MEDS: VALSARTAN 80 MG TABLET (UD) PO SCH (11:07)
[2017-09-07] MEDS ORDERED: ALBUTEROL SO4 0.083% IH SOL 2.5 MG/3 ML VIAL.NEB. NEB PRN (12:13)
--- NOTE | 2017-09-07 12:24 | PN ---
Progress Note (short form) - Note Progress Note: PULMONARY VSS/AFEBRILE REMAINS IN ER HOLDING CONTINUES TO COUGH AND WHEEZE ANICTERIC DIFFUSE B/L EXP RHONCHI/WHEEZE S1S2 RSR BS+ OBESE LESS EDEMA B/L LOWER EXT LABS/MEDS/NOTES/IMAGES REVIEWED (1) Acute bronchitis Code(s): J20.9 - ACUTE BRONCHITIS, UNSPECIFIED (2) Asthma Code(s): J45.909 - UNSPECIFIED ASTHMA, UNCOMPLICATED (3) ASHD (arteriosclerotic heart disease) Code(s): I25.10 - ATHSCL HEART DISEASE OF [place] CORONARY ARTERY W/O ANG PCTRS (4) Atrial fibrillation Code(s): I48.91 - UNSPECIFIED ATRIAL FIBRILLATION (5) HTN (hypertension) Code(s): I10 - ESSENTIAL (PRIMARY) HYPERTENSION CONTINUE IV STEROIDS/NEBS/ANTIBIOTICS/O2 SUPPLEMENTATION PATIENT MAY USE HER OWN NIPPV WHICH SHE BROUGHT FROM HOME WILL FOLLOW Jennifer MEADE MD Problem List - Problems (1) Acute bronchitis Code(s): J20.9 - ACUTE BRONCHITIS, UNSPECIFIED (2) Asthma Code(s): J45.909 - UNSPECIFIED ASTHMA, UNCOMPLICATED (3) ASHD (arteriosclerotic heart disease) Code(s): I25.10 - ATHSCL HEART DISEASE OF [place] CORONARY ARTERY W/O ANG PCTRS (4) Atrial fibrillation Code(s): I48.91 - UNSPECIFIED ATRIAL FIBRILLATION (5) HTN (hypertension) Code(s): I10 - ESSENTIAL (PRIMARY) HYPERTENSION
[2017-09-07 13:17] LABS: PLATELET COUNT 236 K/MM3 (134-434)
[2017-09-07 13:23] LABS: ANISOCYTOSIS 1+
[2017-09-07 13:24] LABS: PLATELET ESTIMATE ADEQUATE
[2017-09-07] MEDS ORDERED: CEFTRIAXONE 1 GM/50 ML BAG ONE (13:25)
[2017-09-07] MEDS: CEFTRIAXONE 1 G/50 ML PREMIX 50 ML IVPB SCH (13:35)
[2017-09-07] MEDS ORDERED: WARFARIN NA 2 MG TABLET (UD) PO SCH (18:00)
[2017-09-07] MEDS: ATORVASTATIN CA 40 MG TABLET (FP) PO SCH (21:20)
[2017-09-07] MEDS: GABAPENTIN 300 MG CAPSULE (FP) PO SCH (21:20)
[2017-09-07] MEDS: DOCUSATE SODIUM 100 MG CAPSULE (FP) PO SCH (21:20)
[2017-09-08] MEDS: methylPREDNISolone NA SUCC 40 MG/1 ML VIAL IVPUSH SCH ×3 (02:29→17:05)
[2017-09-08] MEDS: ALBUTEROL SO4 2.5/IPRATROPIUM 0.5 INH SOL 3 ML VIAL.NEB. NEB SCH ×4 (05:48→23:40)
[2017-09-08 08:04] LABS: BASO % 0.1 % (0-2.0); HEMATOCRIT 34.4 % (32.4-45.2); HEMOGLOBIN 11.2 GM/dL (10.7-15.3); LYMPH % 9.6 % (8-40); MCH 27.7 pg (25.7-33.7); MCHC 32.7 g/dl (32.0-36.0); MEAN CELL VOLUME 84.5 fl (80-96); MONO % 2.4 % (3.8-10.2); NEUT % 87.9 % (42.8-82.8); PLATELET COUNT 200 K/MM3 (134-434); RBC 4.07 M/mm3 (3.60-5.2); RDW 15.7 % (11.6-15.6); WHITE BLOOD COUNT 6.5 K/mm3 (4.0-10.0)
[2017-09-08 08:18] LABS: INR 3.58 (0.82-1.09); PROTHROMBIN TIME (PATIENT) 40.5 SEC (9.98-11.88)
[2017-09-08 08:23] LABS: ANION GAP 10 (8-16); BLOOD UREA NITROGEN 27 mg/dL (7-18); CALCIUM 8.8 mg/dL (8.5-10.1); CHLORIDE 101 mmol/L (98-107); CO2 31 mmol/L (21-32); CREATININE 0.8 mg/dL (0.55-1.02); GLUCOSE,RANDOM 125 mg/dL (74-106); MAGNESIUM 2.5 mg/dL (1.8-2.4); POTASSIUM 4.2 mmol/L (3.5-5.1); SODIUM 142 mmol/L (136-145)
--- NOTE | 2017-09-08 08:42 | PN ---
Progress Note (short form) - Note Progress Note: continues to have persistent non productive cough but improved since admission. states she feels she has mucous but unable to expel it. no difficulty ambulating to RN desk. slept well. claims medication compliance with coumadin at home but has has it changed frequently due to labile INR. Denies CP, fver, chills, N/V/C/D Current Medications Generic Name Dose Route Start Last Admin Trade Name Freq PRN Reason Stop Dose Admin Albuterol Sulfate 1 amp 09/07/17 12:13 Ventolin 0.083% Nebulizer Soln - NEB Q1H PRN SHORT OF BREATH/WHEEZING Albuterol/Ipratropium 1 amp 09/06/17 06:00 09/08/17 05:48 Duoneb - NEB 1 amp QIDR DANN Administration Amiodarone HCl 100 mg 09/06/17 10:00 09/07/17 11:07 Cordarone - PO 100 mg DAILY DANN Administration Atorvastatin Calcium 40 mg 09/06/17 22:00 09/07/17 21:20 Lipitor - PO 40 mg HS DANN Administration Cholecalciferol 1,000 unit 09/06/17 10:00 09/07/17 11:07 Vitamin D3 - PO 1,000 unit DAILY DANN Administration Docusate Sodium 200 mg 09/06/17 22:00 09/07/17 21:20 Colace - PO 200 mg HS DANN Administration Furosemide 80 mg 09/06/17 10:00 09/07/17 11:07 Lasix - PO 80 mg DAILY DANN Administration Gabapentin 300 mg 09/06/17 22:00 09/07/17 21:20 Neurontin - PO 300 mg HS DANN Administration CEFTRIAXONE 1 G/50 ML PREMIX 50 mls @ 100 mls/hr 09/07/17 12:15 09/07/17 13: 35 Ceftriaxone 1 Gm-D5w Bag IVPB 100 mls/hr DAILY DANN Administration Methylprednisolone Sodium Succinate 40 mg 09/06/17 03:00 09/08/17 02:29 Solu-Medrol - IVPUSH 40 mg Q6H-IV DANN Administration Metoprolol Succinate 25 mg 09/06/17 10:00 09/07/17 11:07 Toprol Xl - PO 25 mg DAILY [facility] Administration Multivitamins 1 each 09/06/17 10:00 01/05/18 11:07 Total B With C - PO 1 each DAILY [facility] Administration Multivitamins/Minerals 1 each 09/06/17 10:00 09/07/17 11:07 Theragran-M PO 1 each DAILY [facility] Administration Polyethylene Glycol 17 gm 09/06/17 10:00 09/07/17 11:07 Miralax (For Daily Use) - PO Not Given DAILY [facility] Potassium Chloride 20 meq 09/06/17 10:00 09/07/17 11:07 K-Dur - PO 20 meq DAILY [facility] Administration Sertraline HCl 25 mg 09/06/17 10:00 09/07/17 11:07 Zoloft - PO 25 mg DAILY [facility] Administration Valsartan 80 mg 09/06/17 10:00 09/07/17 11:07 Diovan - PO 80 mg DAILY [facility] Administration Warfarin Sodium 4 mg 09/07/17 18:00 09/07/17 18:46 Coumadin - PO 4 mg MoWeFr@1800 [facility] Administration Warfarin Sodium 3 mg 09/06/17 18:00 09/06/17 18:11 Coumadin - PO 3 mg SuTuThSa@1800 [facility] Administration Last Vital Signs Temp Pulse Resp BP Pulse Ox 98.8 F 82 16 159/88 96 09/08/17 08:31 09/08/17 08:31 09/08/17 08:31 09/08/17 08:31 09/08/17 00:42 General NAD CV S1 S2 + Lungs scattered expiratory wheezing, no crackles. poor inspiratory effort Abdomen soft NT/ND Extremities trace pitting edema CBCD WBC 6.5 K/mm3 (4.0-10.0) D 09/08/17 06:20 RBC 4.07 M/mm3 (3.60-5.2) 09/08/17 06:20 Hgb 11.2 GM/dL (10.7-15.3) 09/08/17 06:20 Hct 34.4 % (32.4-45.2) 09/08/17 06:20 MCV 84.5 fl (80-96) 09/08/17 06:20 MCHC 32.7 g/dl (32.0-36.0) 09/08/17 06:20 RDW 15.7 % (11.6-15.6) H 09/08/17 06:20 Plt Count 200 K/MM3 (134-434) 09/08/17 06:20 MPV 8.0 fl (7.5-11.1) 09/08/17 06:20 CMP Sodium 142 mmol/L (136-145) 09/08/17 06:20 Potassium 4.2 mmol/L (3.5-5.1) 09/08/17 06:20 Chloride 101 mmol/L (98-107) 09/08/17 06:20 Carbon Dioxide 31 mmol/L (21-32) 09/08/17 06:20 Anion Gap 10 (8-16) 09/08/17 06:20 BUN 27 mg/dL (7-18) H D 09/08/17 06:20 Creatinine 0.8 mg/dL (0.55-1.02) 09/08/17 06:20 Creat Clearance w eGFR > 60 (>60) 09/07/17 07:20 Calcium 8.8 mg/dL (8.5-10.1) 09/08/17 06:20 Total Bilirubin 0.4 mg/dL (0.2-1.0) 09/07/17 07:20 AST 29 U/L (15-37) 09/07/17 07:20 ALT 15 U/L (12-78) 09/07/17 07:20 Alkaline Phosphatase 84 U/L (45-117) 09/07/17 07:20 Total Protein 7.3 g/dl (6.4-8.2) 09/07/17 07:20 Albumin 3.1 g/dl (3.4-5.0) L 09/07/17 07:20 Microbiology 09/05/17 14:40 Blood - Peripheral Venous Blood Culture - Preliminary Pending Organism 09/05/17 14:40 Blood - Peripheral Venous Blood Culture - Preliminary NO GROWTH OBTAINED AFTER 48 HOURS, INCUBATION TO CONTINUE FOR 3 DAYS. 09/05/17 14:40 Urine - Urine Clean Catch Urine Culture - Final Contaminated: Please Repeat 09/05/17 14:20 Nasopharyngeal Swab Influenza Types A,B Antigen (JULISA) - Final 09/05/17 14:20 Nasopharyngeal Swab - Final Assesment and Plan: 87 year old female with a past medical history of PNA, Afib, PE, HLD, HTN, sleep apnea presented to the ED with a 2 week history of cough 1. Acute COPD exacerbation vs bronchitis-clinically improved. saturating 96% on RA. will decrease solumedrol to 40mg Q8H, cont ceftriaxone. start chest PT. pulmonary on board. cont nebs. will need PFT done as outpatient once medically improved 2. Elevated INR- hold coumadin. repeat in AM 3. +BCx- +GPC in clusters only in 1 bottle. likely contaminate. will give vanco x1 and repeat Bcx. hold on ID consult pending results of repeat 4. Elevated BUN- likely due to steroid use. no signs of bleeding. 5. HTN- slightly above goal. can be due to steroids. will cont for now and monitor as steroids are titrated 6. BULL- has home cpap 7. afib- on coumadin. held for now due to elevated INR. cont metoprolol 8. PE- on coumadin 9. DVT ppx- on coumadin Visit type - Emergency Visit Emergency Visit: Yes ED Registration Date: 09/05/17 Care time: The patient presented to the Emergency Department on the above date and was hospitalized for further evaluation of their emergent condition. - New Patient This patient is new to me today: Yes Date on this admission: 09/08/17 - Critical Care Critical Care patient: No - Discharge Referral Referred to [facility] Med [facility] No
[2017-09-08] MEDS: CEFTRIAXONE 1 G/50 ML PREMIX 50 ML IVPB SCH (10:22)
--- NOTE | 2017-09-08 10:22 | PN ---
Progress Note, Physician Chief Complaint: sleeping comfortably History of Present Illness: still coughing, feeling slightly better - Current Medication List Current Medications: Active Medications Albuterol Sulfate (Ventolin 0.083% Nebulizer Soln -) 1 amp NEB Q1H PRN PRN Reason: SHORT OF BREATH/WHEEZING Albuterol/Ipratropium (Duoneb -) 1 amp NEB QIDR [facility] Last Admin: 09/08/17 05:48 Dose: 1 amp Amiodarone HCl (Cordarone -) 100 mg PO DAILY [facility] Last Admin: 09/07/17 11:07 Dose: 100 mg Atorvastatin Calcium (Lipitor -) 40 mg PO HS [facility] Last Admin: 09/07/17 21:20 Dose: 40 mg Cholecalciferol (Vitamin D3 -) 1,000 unit PO DAILY [facility] Last Admin: 09/07/17 11:07 Dose: 1,000 unit Docusate Sodium (Colace -) 200 mg PO HS [facility] Last Admin: 09/07/17 21:20 Dose: 200 mg Furosemide (Lasix -) 80 mg PO DAILY [facility] Last Admin: 09/07/17 11:07 Dose: 80 mg Gabapentin (Neurontin -) 300 mg PO HS [facility] Last Admin: 09/07/17 21:20 Dose: 300 mg CEFTRIAXONE 1 G/50 ML PREMIX (Ceftriaxone 1 Gm-D5w Bag) 50 mls @ 100 mls/hr IVPB DAILY [facility] Last Admin: 09/07/17 13:35 Dose: 100 mls/hr Vancomycin HCl 1,000 mg/ (Dextrose) 250 mls @ 200 mls/hr IVPB ONCE ONE Stop: 09/08/17 12:14 Methylprednisolone Sodium Succinate (Solu-Medrol -) 40 mg IVPUSH Q8H-IV [facility] Metoprolol Succinate (Toprol Xl -) 25 mg PO DAILY [facility] Last Admin: 09/07/17 11:07 Dose: 25 mg Multivitamins (Total B With C -) 1 each PO DAILY [facility] Last Admin: 09/07/17 11:07 Dose: 1 each Multivitamins/Minerals (Theragran-M) 1 each PO DAILY [facility] Last Admin: 09/07/17 11:07 Dose: 1 each Polyethylene Glycol (Miralax (For Daily Use) -) 17 gm PO DAILY [facility] Last Admin: 09/07/17 11:07 Dose: Not Given Potassium Chloride (K-Dur -) 20 meq PO DAILY [facility] Last Admin: 09/07/17 11:07 Dose: 20 meq Sertraline HCl (Zoloft -) 25 mg PO DAILY [facility] Last Admin: 09/07/17 11:07 Dose: 25 mg Valsartan (Diovan -) 80 mg PO DAILY [facility] Last Admin: 09/07/17 11:07 Dose: 80 mg - Objective Vital Signs: Vital Signs Temperature 98.8 F 09/08/17 08:31 Pulse Rate 82 09/08/17 08:31 Respiratory Rate 16 09/08/17 08:31 Blood Pressure 159/88 09/08/17 08:31 O2 Sat by Pulse Oximetry (%) 96 09/08/17 00:42 Constitutional: Yes: Calm Cardiovascular: Yes: Regular Rate and Rhythm Respiratory: Yes: Rhonchi, Wheezes Gastrointestinal: Yes: Soft, Abdomen, Obese Edema: No Neurological: Yes: Alert, Oriented ...Motor Strength: WNL Labs: CBC, BMP 09/08/17 06:20 09/08/17 06:20 INR, PTT INR 3.58 (0.82-1.09) H 09/08/17 06:20 Laboratory Tests 09/08/17 09/08/17 09/08/17 06:20 06:20 06:20 WBC 6.5 D Hgb 11.2 Plt Count 200 INR 3.58 H Potassium 4.2 Creatinine 0.8 Magnesium 2.5 H Assessment/Plan IMP: PAF Chronic PHTN Acute asthmatic bronchitis Bacteremia: 09/06 ?contaminant REC: 1. Acute Bronchitis: Steroid taper as per pulmonary 2. AF: in sinus, continue low dose amio, INR goal 2-3. 3. Serial cultures, suspect contaminant. Abx for now as per PMD
[2017-09-08] MEDS: AMIODARONE HCL 200 MG TABLET (FP) PO SCH (10:23)
[2017-09-08] MEDS: VALSARTAN 80 MG TABLET (UD) PO SCH (10:24)
[2017-09-08] MEDS: CHOLECALCIFEROL (VITAMIN D3) 1,000 UNIT TABLET (FP) PO SCH (10:25)
[2017-09-08] MEDS: METOPROLOL SUCCINATE 25 MG TAB.SR.24H (FP) PO SCH (10:25)
[2017-09-08] MEDS: FUROSEMIDE 40 MG TABLET (FP) PO SCH (10:25)
[2017-09-08] MEDS: VITAMIN B COMPLEX W/C COMBO TABLET (FP) PO SCH (10:26)
[2017-09-08] MEDS: MULTIVITAMINS THER W-MINERALS COMBO TABLET (FP) PO SCH (10:26)
[2017-09-08] MEDS: POTASSIUM CHLORIDE TABS 20 MEQ TABLET.ER (FP) PO SCH (10:26)
[2017-09-08] MEDS: SERTRALINE HCL 25 MG TABLET (FP) PO SCH (10:27)
[2017-09-08] MEDS: POLYETHYLENE GLYCOL 3350 119 GM BTL PO SCH (10:27)
[2017-09-08] MEDS ORDERED: VANCOMYCIN 1,000 MG in DEXTROSE 5%-WATER - 250 ML IVPB ONE (11:00)
--- NOTE | 2017-09-08 13:50 | PN ---
Progress Note, Physician History of Present Illness: pulmonary alert,less dyspneic,+cough. - Current Medication List Current Medications: Active Medications Albuterol Sulfate (Ventolin 0.083% Nebulizer Soln -) 1 amp NEB Q1H PRN PRN Reason: SHORT OF BREATH/WHEEZING Albuterol/Ipratropium (Duoneb -) 1 amp NEB QIDR [facility] Last Admin: 09/08/17 11:27 Dose: 1 amp Amiodarone HCl (Cordarone -) 100 mg PO DAILY [facility] Last Admin: 09/08/17 10:23 Dose: 100 mg Atorvastatin Calcium (Lipitor -) 40 mg PO HS [facility] Last Admin: 09/07/17 21:20 Dose: 40 mg Cholecalciferol (Vitamin D3 -) 1,000 unit PO DAILY [facility] Last Admin: 09/08/17 10:25 Dose: 1,000 unit Docusate Sodium (Colace -) 200 mg PO HS [facility] Last Admin: 09/07/17 21:20 Dose: 200 mg Furosemide (Lasix -) 80 mg PO DAILY [facility] Last Admin: 09/08/17 10:25 Dose: 80 mg Gabapentin (Neurontin -) 300 mg PO HS [facility] Last Admin: 09/07/17 21:20 Dose: 300 mg CEFTRIAXONE 1 G/50 ML PREMIX (Ceftriaxone 1 Gm-D5w Bag) 50 mls @ 100 mls/hr IVPB DAILY [facility] Last Admin: 09/08/17 10:22 Dose: 100 mls/hr Methylprednisolone Sodium Succinate (Solu-Medrol -) 40 mg IVPUSH Q8H-IV [facility] Last Admin: 09/08/17 10:26 Dose: 40 mg Metoprolol Succinate (Toprol Xl -) 25 mg PO DAILY [facility] Last Admin: 09/08/17 10:25 Dose: 25 mg Multivitamins (Total B With C -) 1 each PO DAILY [facility] Last Admin: 09/08/17 10:26 Dose: 1 each Multivitamins/Minerals (Theragran-M) 1 each PO DAILY [facility] Last Admin: 09/08/17 10:26 Dose: 1 each Polyethylene Glycol (Miralax (For Daily Use) -) 17 gm PO DAILY [facility] Last Admin: 09/08/17 10:27 Dose: Not Given Potassium Chloride (K-Dur -) 20 meq PO DAILY [facility] Last Admin: 09/08/17 10:26 Dose: 20 meq Sertraline HCl (Zoloft -) 25 mg PO DAILY [facility] Last Admin: 09/08/17 10:27 Dose: 25 mg Valsartan (Diovan -) 80 mg PO DAILY [facility] Last Admin: 09/08/17 10:24 Dose: 80 mg - Objective Vital Signs: Vital Signs Temperature 98.8 F 09/08/17 08:31 Pulse Rate 82 09/08/17 08:31 Respiratory Rate 16 09/08/17 08:31 Blood Pressure 159/88 09/08/17 08:31 O2 Sat by Pulse Oximetry (%) 96 09/08/17 00:42 Constitutional: Yes: Well Nourished, Calm Eyes: Yes: WNL HENT: Yes: WNL Neck: Yes: WNL Cardiovascular: Yes: Regular Rate and Rhythm, S1, S2 Respiratory: Yes: Wheezes (scattered tr wheezes) Gastrointestinal: Yes: Normal Bowel Sounds, Soft Extremities: Yes: WNL Edema: No Labs: CBC, BMP 09/08/17 06:20 09/08/17 06:20 INR, PTT INR 3.58 (0.82-1.09) H 09/08/17 06:20 Assessment/Plan IMP (1) Acute bronchitis Code(s): J20.9 - ACUTE BRONCHITIS, UNSPECIFIED (2) Asthma Code(s): J45.909 - UNSPECIFIED ASTHMA, UNCOMPLICATED (3) ASHD (arteriosclerotic heart disease) Code(s): I25.10 - ATHSCL HEART DISEASE OF [place] CORONARY ARTERY W/O ANG PCTRS (4) Atrial fibrillation Code(s): I48.91 - UNSPECIFIED ATRIAL FIBRILLATION (5) HTN (hypertension) Code(s): I10 - ESSENTIAL (PRIMARY) HYPERTENSION PULMONARY HTN PLAN CONTINUE IV STEROIDS SAME DOSE INHALED BRONCHODILATORS ANTIBIOTICS O[address] ANTI-TUSSIVES DR BOWENS
[2017-09-08] MEDS ORDERED: guaiFENesin/CODEINE 5 ML UNIT-DOSE CUPS PO PRN (14:23)
[2017-09-08] MEDS: DOCUSATE SODIUM 100 MG CAPSULE (FP) PO SCH (21:33)
[2017-09-08] MEDS: GABAPENTIN 300 MG CAPSULE (FP) PO SCH (21:33)
[2017-09-08] MEDS: ATORVASTATIN CA 40 MG TABLET (FP) PO SCH (21:33)
[2017-09-09] MEDS: methylPREDNISolone NA SUCC 40 MG/1 ML VIAL IVPUSH SCH ×3 (02:00→17:26)
[2017-09-09] MEDS: ALBUTEROL SO4 2.5/IPRATROPIUM 0.5 INH SOL 3 ML VIAL.NEB. NEB SCH ×4 (06:25→23:03)
[2017-09-09 08:20] LABS: INR 3.91 (0.82-1.09); PROTHROMBIN TIME (PATIENT) 44.2 SEC (9.98-11.88)
[2017-09-09 08:37] LABS: ANION GAP 6 (8-16); BLOOD UREA NITROGEN 28 mg/dL (7-18); CALCIUM 8.1 mg/dL (8.5-10.1); CHLORIDE 101 mmol/L (98-107); CO2 35 mmol/L (21-32); CREATININE 0.7 mg/dL (0.55-1.02); GLUCOSE,RANDOM 108 mg/dL (74-106); POTASSIUM 4.3 mmol/L (3.5-5.1); SODIUM 142 mmol/L (136-145)
--- NOTE | 2017-09-09 09:17 | PN ---
Progress Note, Physician Chief Complaint: wants to go home - Current Medication List Current Medications: Active Medications Albuterol Sulfate (Ventolin 0.083% Nebulizer Soln -) 1 amp NEB Q1H PRN PRN Reason: SHORT OF BREATH/WHEEZING Albuterol/Ipratropium (Duoneb -) 1 amp NEB QIDR [facility] Last Admin: 09/09/17 06:25 Dose: Not Given Amiodarone HCl (Cordarone -) 100 mg PO DAILY [facility] Last Admin: 09/08/17 10:23 Dose: 100 mg Atorvastatin Calcium (Lipitor -) 40 mg PO HS [facility] Last Admin: 09/08/17 21:33 Dose: 40 mg Cholecalciferol (Vitamin D3 -) 1,000 unit PO DAILY [facility] Last Admin: 09/08/17 10:25 Dose: 1,000 unit Docusate Sodium (Colace -) 200 mg PO HS [facility] Last Admin: 09/08/17 21:33 Dose: 200 mg Furosemide (Lasix -) 80 mg PO DAILY [facility] Last Admin: 09/08/17 10:25 Dose: 80 mg Gabapentin (Neurontin -) 300 mg PO HS [facility] Last Admin: 09/08/17 21:33 Dose: 300 mg Guaifenesin/Codeine Phosphate (Robitussin Ac -) 5 ml PO Q6H PRN PRN Reason: COUGH Last Admin: 09/08/17 21:33 Dose: 5 ml CEFTRIAXONE 1 G/50 ML PREMIX (Ceftriaxone 1 Gm-D5w Bag) 50 mls @ 100 mls/hr IVPB DAILY [facility] Last Admin: 09/08/17 10:22 Dose: 100 mls/hr Methylprednisolone Sodium Succinate (Solu-Medrol -) 40 mg IVPUSH Q8H-IV [facility] Last Admin: 09/09/17 02:00 Dose: 40 mg Metoprolol Succinate (Toprol Xl -) 25 mg PO DAILY [facility] Last Admin: 09/08/17 10:25 Dose: 25 mg Multivitamins (Total B With C -) 1 each PO DAILY [facility] Last Admin: 09/08/17 10:26 Dose: 1 each Multivitamins/Minerals (Theragran-M) 1 each PO DAILY [facility] Last Admin: 09/08/17 10:26 Dose: 1 each Polyethylene Glycol (Miralax (For Daily Use) -) 17 gm PO DAILY [facility] Last Admin: 09/08/17 10:27 Dose: Not Given Potassium Chloride (K-Dur -) 20 meq PO DAILY [facility] Last Admin: 09/08/17 10:26 Dose: 20 meq Sertraline HCl (Zoloft -) 25 mg PO DAILY [facility] Last Admin: 09/08/17 10:27 Dose: 25 mg Valsartan (Diovan -) 80 mg PO DAILY [facility] Last Admin: 09/08/17 10:24 Dose: 80 mg - Objective Vital Signs: Vital Signs Temperature 97.5 F L 09/09/17 05:45 Pulse Rate 60 09/09/17 05:45 Respiratory Rate 20 09/09/17 05:45 Blood Pressure 142/69 09/09/17 05:45 O2 Sat by Pulse Oximetry (%) 98 09/08/17 21:00 Constitutional: Yes: Calm Eyes: Yes: Conjunctiva Clear Cardiovascular: Yes: Regular Rate and Rhythm Respiratory: Yes: CTA Bilaterally Gastrointestinal: Yes: Soft, Abdomen, Obese Edema: No Neurological: Yes: Alert, Oriented Labs: CBC, BMP 09/08/17 06:20 09/09/17 06:30 INR, PTT INR 3.91 (0.82-1.09) H 09/09/17 06:30 Microbiology 09/05/17 14:40 Blood - Peripheral Venous Blood Culture - Preliminary NO GROWTH OBTAINED AFTER 72 HOURS, INCUBATION TO CONTINUE FOR 2 DAYS. Laboratory Tests 09/08/17 09/09/17 09/09/17 06:20 06:30 06:30 WBC 6.5 D Hgb 11.2 Plt Count 200 INR 3.91 H Potassium 4.3 Creatinine 0.7 Assessment/Plan IMP: PAF Chronic PHTN Acute asthmatic bronchitis Bacteremia: 09/06 ?contaminant REC: 1. Acute Bronchitis: Steroid taper as per pulmonary 2. AF: in sinus, continue low dose amio, INR goal 2-3. 3. Serial cultures, suspect contaminant. Abx for now as per PMD
--- NOTE | 2017-09-09 09:41 | PN ---
Physical Exam: SUBJECTIVE: Patient seen and examined. She is oob to chair, expresses she doesn' t feel better. Still with cough that causes her chest and head to hurt. OBJECTIVE: Vital Signs Period Temp Pulse Resp BP Sys/Suarez Pulse Ox Last 24 Hr 97.5 F-99.0 F 54-60 18-20 142-175/57-75 98-98 PE Gen: morbid Neuro: alert, awake, cn 2-12intact Pulm: expiratory wheezing, bases clear, + cough CV: s1 s2 rrr Abd: s nd nt +bs Ext: warm, trace le edema Laboratory Results - last 24 hr 09/09/17 09/09/17 06:30 06:30 PT with INR 44.20 H INR 3.91 H Sodium 142 Potassium 4.3 Chloride 101 Carbon Dioxide 35 H Anion Gap 6 L BUN 28 H Creatinine 0.7 Random Glucose 108 H Calcium 8.1 L Active Medications Generic Name Dose Route Start Last Admin Trade Name Freq PRN Reason Stop Dose Admin Albuterol Sulfate 1 amp 09/07/17 12:13 Ventolin 0.083% Nebulizer Soln - NEB Q1H PRN SHORT OF BREATH/WHEEZING Albuterol/Ipratropium 1 amp 09/06/17 06:00 09/09/17 06:25 Duoneb - NEB Not Given QIDR [facility] Amiodarone HCl 100 mg 09/06/17 10:00 09/08/17 10:23 Cordarone - PO 100 mg DAILY [facility] Administration Atorvastatin Calcium 40 mg 09/06/17 22:00 09/08/17 21:33 Lipitor - PO 40 mg HS [facility] Administration Cholecalciferol 1,000 unit 09/06/17 10:00 09/08/17 10:25 Vitamin D3 - PO 1,000 unit DAILY [facility] Administration Docusate Sodium 200 mg 09/06/17 22:00 09/08/17 21:33 Colace - PO 200 mg HS [facility] Administration Furosemide 80 mg 09/06/17 10:00 09/08/17 10:25 Lasix - PO 80 mg DAILY [facility] Administration Gabapentin 300 mg 09/06/17 22:00 09/08/17 21:33 Neurontin - PO 300 mg HS [facility] Administration Guaifenesin/Codeine Phosphate 5 ml 09/08/17 14:23 09/08/17 21:33 Robitussin Ac - PO 5 ml Q6H PRN Administration COUGH CEFTRIAXONE 1 G/50 ML PREMIX 50 mls @ 100 mls/hr 09/07/17 12:15 09/08/17 10: 22 Ceftriaxone 1 Gm-D5w Bag IVPB 100 mls/hr DAILY [facility] Administration Methylprednisolone Sodium Succinate 40 mg 09/08/17 10:00 09/09/17 02:00 Solu-Medrol - IVPUSH 40 mg Q8H-IV [facility] Administration Metoprolol Succinate 25 mg 09/06/17 10:00 09/08/17 10:25 Toprol Xl - PO 25 mg DAILY [facility] Administration Multivitamins 1 each 09/06/17 10:00 09/08/17 10:26 Total B With C - PO 1 each DAILY [facility] Administration Multivitamins/Minerals 1 each 09/06/17 10:00 09/08/17 10:26 Theragran-M PO 1 each DAILY [facility] Administration Polyethylene Glycol 17 gm 09/06/17 10:00 09/08/17 10:27 Miralax (For Daily Use) - PO Not Given DAILY [facility] Potassium Chloride 20 meq 09/06/17 10:00 09/08/17 10:26 K-Dur - PO 20 meq DAILY [facility] Administration Sertraline HCl 25 mg 09/06/17 10:00 09/08/17 10:27 Zoloft - PO 25 mg DAILY [facility] Administration Valsartan 80 mg 09/06/17 10:00 09/08/17 10:24 Diovan - PO 80 mg DAILY [facility] Administration Microbiology 09/08/17 09:14 Blood Culture - Preliminary Blood - Peripheral Venous NO GROWTH OBTAINED AFTER 24 HOURS, INCUBATION TO CONTINUE FOR 4 DAYS. 09/08/17 09:07 Blood Culture - Preliminary Blood - Peripheral Venous NO GROWTH OBTAINED AFTER 24 HOURS, INCUBATION TO CONTINUE FOR 4 DAYS. 09/05/17 14:40 Blood Culture - Preliminary Blood - Peripheral Venous Staphylococcus Coagulase Neg 09/05/17 14:40 Blood Culture - Preliminary Blood - Peripheral Venous NO GROWTH OBTAINED AFTER 72 HOURS, INCUBATION TO CONTINUE FOR 2 DAYS. Assessment: 87 year old female with a past medical history of PNA, Afib, PE, HLD , HTN, sleep apnea presented to the ED with a 2 week history of cough Plan: 1. Acute COPD exacerbation vs bronchitis - Continue ceftriaxone (day 3) - Solumedrol 40mg q8hr - Start mucinex BID, stop robitussin w/ codeine - Duonebs 2. Elevated INR - Hold coumadin - Daily INR, goal 2-3 3. A fib - Coumadin on hold - Continue amio 4. Positive BC x1 - Likely contaminate - Repeat cx negative, s/p x1 dose vanco 5. HTN - Slightly labile, however controlled today - Continue diovab, toprol xl, lasix 6. BULL - Has home cpap 7. PE - On coumadin Visit type - Emergency Visit Emergency Visit: Yes ED Registration Date: 09/05/17 Care time: The patient presented to the Emergency Department on the above date and was hospitalized for further evaluation of their emergent condition. - New Patient This patient is new to me today: Yes Date on this admission: 09/09/17 - Critical Care Critical Care patient: No
[2017-09-09] MEDS ORDERED: PT OWN MED DRAWER 7, Y5N ONE (10:13)
[2017-09-09] MEDS: AMIODARONE HCL 200 MG TABLET (FP) PO SCH (11:00)
[2017-09-09] MEDS: MULTIVITAMINS THER W-MINERALS COMBO TABLET (FP) PO SCH (11:00)
[2017-09-09] MEDS: SERTRALINE HCL 25 MG TABLET (FP) PO SCH (11:00)
[2017-09-09] MEDS: CHOLECALCIFEROL (VITAMIN D3) 1,000 UNIT TABLET (FP) PO SCH (11:00)
[2017-09-09] MEDS: CEFTRIAXONE 1 G/50 ML PREMIX 50 ML IVPB SCH (11:00)
[2017-09-09] MEDS: POTASSIUM CHLORIDE TABS 20 MEQ TABLET.ER (FP) PO SCH (11:00)
[2017-09-09] MEDS: METOPROLOL SUCCINATE 25 MG TAB.SR.24H (FP) PO SCH (11:00)
[2017-09-09] MEDS: VALSARTAN 80 MG TABLET (UD) PO SCH (11:00)
[2017-09-09] MEDS: VITAMIN B COMPLEX W/C COMBO TABLET (FP) PO SCH (11:00)
[2017-09-09] MEDS: FUROSEMIDE 40 MG TABLET (FP) PO SCH (11:26)
[2017-09-09] MEDS: POLYETHYLENE GLYCOL 3350 119 GM BTL PO SCH (11:39)
--- NOTE | 2017-09-09 14:05 | PN ---
Progress Note, Physician History of Present Illness: pulmonary alert,coughing,still dyspneic - Current Medication List Current Medications: Active Medications Albuterol Sulfate (Ventolin 0.083% Nebulizer Soln -) 1 amp NEB Q1H PRN PRN Reason: SHORT OF BREATH/WHEEZING Albuterol/Ipratropium (Duoneb -) 1 amp NEB QIDR [facility] Last Admin: 09/09/17 12:00 Dose: 1 amp Amiodarone HCl (Cordarone -) 100 mg PO DAILY [facility] Last Admin: 09/09/17 11:00 Dose: 100 mg Atorvastatin Calcium (Lipitor -) 40 mg PO HS [facility] Last Admin: 09/08/17 21:33 Dose: 40 mg Cholecalciferol (Vitamin D3 -) 1,000 unit PO DAILY [facility] Last Admin: 09/09/17 11:00 Dose: 1,000 unit Docusate Sodium (Colace -) 200 mg PO HS [facility] Last Admin: 09/08/17 21:33 Dose: 200 mg Furosemide (Lasix -) 80 mg PO DAILY [facility] Last Admin: 09/09/17 11:26 Dose: 80 mg Gabapentin (Neurontin -) 300 mg PO HS [facility] Last Admin: 09/08/17 21:33 Dose: 300 mg Guaifenesin/Codeine Phosphate (Robitussin Ac -) 5 ml PO Q6H PRN PRN Reason: COUGH Last Admin: 09/08/17 21:33 Dose: 5 ml CEFTRIAXONE 1 G/50 ML PREMIX (Ceftriaxone 1 Gm-D5w Bag) 50 mls @ 100 mls/hr IVPB DAILY [facility] Last Admin: 09/09/17 11:00 Dose: 100 mls/hr Methylprednisolone Sodium Succinate (Solu-Medrol -) 40 mg IVPUSH Q8H-IV [facility] Last Admin: 09/09/17 11:00 Dose: 40 mg Metoprolol Succinate (Toprol Xl -) 25 mg PO DAILY [facility] Last Admin: 09/09/17 11:00 Dose: 25 mg Multivitamins (Total B With C -) 1 each PO DAILY [facility] Last Admin: 09/09/17 11:00 Dose: 1 each Multivitamins/Minerals (Theragran-M) 1 each PO DAILY [facility] Last Admin: 09/09/17 11:00 Dose: 1 each Polyethylene Glycol (Miralax (For Daily Use) -) 17 gm PO DAILY [facility] Last Admin: 09/09/17 11:39 Dose: 17 gm Potassium Chloride (K-Dur -) 20 meq PO DAILY [facility] Last Admin: 09/09/17 11:00 Dose: 20 meq Sertraline HCl (Zoloft -) 25 mg PO DAILY [facility] Last Admin: 09/09/17 11:00 Dose: 25 mg Valsartan (Diovan -) 80 mg PO DAILY [facility] Last Admin: 09/09/17 11:00 Dose: 80 mg - Objective Vital Signs: Vital Signs Temperature 97.5 F L 09/09/17 05:45 Pulse Rate 60 09/09/17 05:45 Respiratory Rate 20 09/09/17 05:45 Blood Pressure 142/69 09/09/17 05:45 O2 Sat by Pulse Oximetry (%) 98 09/08/17 21:00 Constitutional: Yes: Well Nourished, Calm Eyes: Yes: WNL HENT: Yes: WNL Neck: Yes: WNL Cardiovascular: Yes: Pulse Irregular, S1, S2 Respiratory: Yes: Rhonchi, Wheezes (bilateral wheezes and rhonchi) Gastrointestinal: Yes: Normal Bowel Sounds, Soft Extremities: Yes: WNL Edema: No Labs: CBC, BMP 09/09/17 06:30 INR, PTT INR 3.91 (0.82-1.09) H 09/09/17 06:30 Assessment/Plan IMP (1) Acute bronchitis Code(s): J20.9 - ACUTE BRONCHITIS, UNSPECIFIED (2) Asthma Code(s): J45.909 - UNSPECIFIED ASTHMA, UNCOMPLICATED (3) ASHD (arteriosclerotic heart disease) Code(s): I25.10 - ATHSCL HEART DISEASE OF [place] CORONARY ARTERY W/O ANG PCTRS (4) Atrial fibrillation Code(s): I48.91 - UNSPECIFIED ATRIAL FIBRILLATION (5) HTN (hypertension) Code(s): I10 - ESSENTIAL (PRIMARY) HYPERTENSION PULMONARY HTN PLAN CONTINUE IV STEROIDS SAME DOSE INHALED BRONCHODILATORS ANTIBIOTICS O2 SU[address]MENTATION ANTI-TUSSIVES DR BOWENS
[2017-09-09] MEDS: ATORVASTATIN CA 40 MG TABLET (FP) PO SCH (22:18)
[2017-09-09] MEDS: DOCUSATE SODIUM 100 MG CAPSULE (FP) PO SCH (22:18)
[2017-09-09] MEDS: guaiFENesin/D-METHORPHAN HB 1 EACH TAB.ER.12H PO SCH ×2 (22:18)
[2017-09-09] MEDS: GABAPENTIN 300 MG CAPSULE (FP) PO SCH (22:18)
[2017-09-10] MEDS: methylPREDNISolone NA SUCC 40 MG/1 ML VIAL IVPUSH SCH ×3 (02:44→23:02)
[2017-09-10] MEDS: ALBUTEROL SO4 2.5/IPRATROPIUM 0.5 INH SOL 3 ML VIAL.NEB. NEB SCH ×3 (06:25→17:15)
[2017-09-10 08:38] LABS: HEMATOCRIT 36.1 % (32.4-45.2); HEMOGLOBIN 11.6 GM/dL (10.7-15.3); MCH 27.2 pg (25.7-33.7); PLATELET COUNT 205 K/MM3 (134-434); RBC 4.25 M/mm3 (3.60-5.2); RDW 15.6 % (11.6-15.6); WHITE BLOOD COUNT 6.2 K/mm3 (4.0-10.0)
[2017-09-10 08:43] LABS: INR 2.96 (0.82-1.09); PROTHROMBIN TIME (PATIENT) 33.5 SEC (9.98-11.88)
[2017-09-10 08:49] LABS: ANION GAP 8 (8-16); BLOOD UREA NITROGEN 21 mg/dL (7-18); CALCIUM 8.3 mg/dL (8.5-10.1); CHLORIDE 102 mmol/L (98-107); CO2 31 mmol/L (21-32); CREATININE 0.7 mg/dL (0.55-1.02); GLUCOSE,RANDOM 108 mg/dL (74-106); POTASSIUM 4.2 mmol/L (3.5-5.1); SODIUM 141 mmol/L (136-145)
[2017-09-10] MEDS: FUROSEMIDE 40 MG TABLET (FP) PO SCH (09:59)
[2017-09-10] MEDS: METOPROLOL SUCCINATE 25 MG TAB.SR.24H (FP) PO SCH (10:00)
[2017-09-10] MEDS: MULTIVITAMINS THER W-MINERALS COMBO TABLET (FP) PO SCH (10:00)
[2017-09-10] MEDS: CHOLECALCIFEROL (VITAMIN D3) 1,000 UNIT TABLET (FP) PO SCH (10:00)
[2017-09-10] MEDS: VITAMIN B COMPLEX W/C COMBO TABLET (FP) PO SCH (10:00)
[2017-09-10] MEDS: VALSARTAN 80 MG TABLET (UD) PO SCH (10:00)
[2017-09-10] MEDS: POTASSIUM CHLORIDE TABS 20 MEQ TABLET.ER (FP) PO SCH (10:00)
[2017-09-10] MEDS: SERTRALINE HCL 25 MG TABLET (FP) PO SCH (10:00)
[2017-09-10] MEDS: POLYETHYLENE GLYCOL 3350 119 GM BTL PO SCH (10:06)
[2017-09-10] MEDS: CEFTRIAXONE 1 G/50 ML PREMIX 50 ML IVPB SCH (10:16)
[2017-09-10] MEDS: guaiFENesin/D-METHORPHAN HB 1 EACH TAB.ER.12H PO SCH (10:30)
--- NOTE | 2017-09-10 11:50 | PN ---
Progress Note (short form) - Note Progress Note: PULMONARY Breathing continues to improve. +nonproductive cough. No fevers or chills. Wants to go home. Last Vital Signs Temp Pulse Resp BP Pulse Ox 98.6 F 64 20 162/65 96 09/10/17 06:00 09/10/17 06:00 09/10/17 06:00 09/10/17 06:00 09/09/17 21:00 Gen: NAD in chair Heart: RRR Lung: scattered rhonchi, wheezes Abd: soft, nontender Ext: distal edema CBC, BMP 09/10/17 07:00 09/10/17 07:00 Active Medications Albuterol Sulfate (Ventolin 0.083% Nebulizer Soln -) 1 amp NEB Q1H PRN PRN Reason: SHORT OF BREATH/WHEEZING Albuterol/Ipratropium (Duoneb -) 1 amp NEB QIDR [facility] Last Admin: 09/10/17 06:25 Dose: 1 amp Amiodarone HCl (Cordarone -) 100 mg PO DAILY [facility] Last Admin: 09/09/17 11:00 Dose: 100 mg Atorvastatin Calcium (Lipitor -) 40 mg PO [facility] Last Admin: 09/09/17 22:18 Dose: 40 mg Cholecalciferol (Vitamin D3 -) 1,000 unit PO DAILY [facility] Last Admin: 09/10/17 10:00 Dose: 1,000 unit Docusate Sodium (Colace -) 200 mg PO HS [facility] Last Admin: 09/09/17 22:18 Dose: 200 mg Furosemide (Lasix -) 80 mg PO DAILY [facility] Last Admin: 09/10/17 09:59 Dose: 80 mg Gabapentin (Neurontin -) 300 mg PO HS [facility] Last Admin: 09/09/17 22:18 Dose: 300 mg Guaifenesin (Mucinex Dm -) 1 tablet PO BID [facility] Last Admin: 09/09/17 22:18 Dose: 1 tablet CEFTRIAXONE 1 G/50 ML PREMIX (Ceftriaxone 1 Gm-D5w Bag) 50 mls @ 100 mls/hr IVPB DAILY [facility] Last Admin: 09/10/17 10:16 Dose: 100 mls/hr Methylprednisolone Sodium Succinate (Solu-Medrol -) 40 mg IVPUSH Q8H-IV [facility] Last Admin: 09/10/17 09:59 Dose: 40 mg Metoprolol Succinate (Toprol Xl -) 25 mg PO DAILY [facility] Last Admin: 09/10/17 10:00 Dose: 25 mg Multivitamins (Total B With C -) 1 each PO DAILY [facility] Last Admin: 09/10/17 10:00 Dose: 1 each Multivitamins/Minerals (Theragran-M) 1 each PO DAILY [facility] Last Admin: 09/10/17 10:00 Dose: 1 each Polyethylene Glycol (Miralax (For Daily Use) -) 17 gm PO DAILY [facility] Last Admin: 09/10/17 10:06 Dose: 17 gm Potassium Chloride (K-Dur -) 20 meq PO DAILY [facility] Last Admin: 09/10/17 10:00 Dose: 20 meq Sertraline HCl (Zoloft -) 25 mg PO DAILY [facility] Last Admin: 09/10/17 10:00 Dose: 25 mg Valsartan (Diovan -) 80 mg PO DAILY [facility] Last Admin: 09/10/17 10:00 Dose: 80 mg A/P Acute Bronchitis Acute Asthma Exacerbation Atrial Fibrillation CAD HTN Pulmonary HTN - can decrease medrol to 40mg q12h - if continues to improve, can change steroids to PO and taper as outpt - inhaled bronchodilators - complete empiric antibiotics - PT eval - rate controlled
[2017-09-10 12:13] LABS: ANISOCYTOSIS 0; MACROCYTOSIS 0; OVALOCYTE 1+; PLATELET ESTIMATE NORMAL
--- NOTE | 2017-09-10 13:01 | PN ---
Progress Note, Physician Chief Complaint: Patient says she feels much better, still with coughing but improved. No cp, sob , n/v. Asking to go home. - Current Medication List Current Medications: Active Medications Albuterol Sulfate (Ventolin 0.083% Nebulizer Soln -) 1 amp NEB Q1H PRN PRN Reason: SHORT OF BREATH/WHEEZING Albuterol/Ipratropium (Duoneb -) 1 amp NEB QIDR [facility] Last Admin: 09/10/17 06:25 Dose: 1 amp Amiodarone HCl (Cordarone -) 100 mg PO DAILY [facility] Last Admin: 09/09/17 11:00 Dose: 100 mg Atorvastatin Calcium (Lipitor -) 40 mg PO HS [facility] Last Admin: 09/09/17 22:18 Dose: 40 mg Cholecalciferol (Vitamin D3 -) 1,000 unit PO DAILY [facility] Last Admin: 09/10/17 10:00 Dose: 1,000 unit Docusate Sodium (Colace -) 200 mg PO HS [facility] Last Admin: 09/09/17 22:18 Dose: 200 mg Furosemide (Lasix -) 80 mg PO DAILY [facility] Last Admin: 09/10/17 09:59 Dose: 80 mg Gabapentin (Neurontin -) 300 mg PO HS [facility] Last Admin: 09/09/17 22:18 Dose: 300 mg Guaifenesin (Mucinex Dm -) 1 tablet PO BID [facility] Last Admin: 09/09/17 22:18 Dose: 1 tablet CEFTRIAXONE 1 G/50 ML PREMIX (Ceftriaxone 1 Gm-D5w Bag) 50 mls @ 100 mls/hr IVPB DAILY [facility] Last Admin: 09/10/17 10:16 Dose: 100 mls/hr Methylprednisolone Sodium Succinate (Solu-Medrol -) 40 mg IVPUSH BID [facility] Metoprolol Succinate (Toprol Xl -) 25 mg PO DAILY [facility] Last Admin: 09/10/17 10:00 Dose: 25 mg Multivitamins (Total B With C -) 1 each PO DAILY [facility] Last Admin: 09/10/17 10:00 Dose: 1 each Multivitamins/Minerals (Theragran-M) 1 each PO DAILY [facility] Last Admin: 09/10/17 10:00 Dose: 1 each Polyethylene Glycol (Miralax (For Daily Use) -) 17 gm PO DAILY [facility] Last Admin: 09/10/17 10:06 Dose: 17 gm Potassium Chloride (K-Dur -) 20 meq PO DAILY [facility] Last Admin: 09/10/17 10:00 Dose: 20 meq Sertraline HCl (Zoloft -) 25 mg PO DAILY [facility] Last Admin: 09/10/17 10:00 Dose: 25 mg Valsartan (Diovan -) 80 mg PO DAILY [facility] Last Admin: 09/10/17 10:00 Dose: 80 mg - Objective Vital Signs: Vital Signs Temperature 37.0 C 09/10/17 06:00 Pulse Rate 64 09/10/17 06:00 Respiratory Rate 20 09/10/17 06:00 Blood Pressure 162/65 09/10/17 06:00 O2 Sat by Pulse Oximetry (%) 96 09/09/17 21:00 Constitutional: Yes: No Distress, Calm, Obese Cardiovascular: Yes: Regular Rate and Rhythm. No: Gallop, Murmur, Rub Respiratory: Yes: Regular, Wheezes. No: CTA Bilaterally, On Nasal O2, Rales, Rhonchi Gastrointestinal: Yes: Normal Bowel Sounds, Soft. No: Distention, Tenderness Extremities: Yes: WNL Edema: No Labs: CBC, BMP 09/10/17 07:00 09/10/17 07:00 INR, PTT INR 2.96 (0.82-1.09) H 09/10/17 07:00 Problem List - Problems (1) Acute bronchitis Code(s): J20.9 - ACUTE BRONCHITIS, UNSPECIFIED Qualifiers: Bronchitis organism: unspecified organism Qualified Code(s): J20.9 - Acute bronchitis, unspecified (2) CHF (congestive heart failure) Code(s): I50.9 - HEART FAILURE, UNSPECIFIED Qualifiers: Congestive heart failure type: diastolic Congestive heart failure chronicity: chronic Qualified Code(s): I50.32 - Chronic diastolic (congestive ) heart failure (3) ASHD (arteriosclerotic heart disease) Code(s): I25.10 - ATHSCL HEART DISEASE OF [place] CORONARY ARTERY W/O ANG PCTRS (4) Atrial fibrillation Code(s): I48.91 - UNSPECIFIED ATRIAL FIBRILLATION Qualifiers: Atrial fibrillation type: chronic Qualified Code(s): I48.2 - Chronic atrial fibrillation (5) HTN (hypertension) Code(s): I10 - ESSENTIAL (PRIMARY) HYPERTENSION (6) Pickwickian syndrome Code(s): E66.2 - MORBID (SEVERE) OBESITY WITH ALVEOLAR HYPOVENTILATION Assessment/Plan (1) Acute bronchitis Assessment/Plan: -much improved from admission -pulmonary note reviewed -titrating steroids -planning to change to prednisone and discharge tomorrow Code(s): J20.9 - ACUTE BRONCHITIS, UNSPECIFIED Qualifiers: Bronchitis organism: unspecified organism Qualified Code(s): J20.9 - Acute bronchitis, unspecified (2) CHF (congestive heart failure) Assessment/Plan: -not in exacerbation -continue lasix Code(s): I50.9 - HEART FAILURE, UNSPECIFIED Qualifiers: Congestive heart failure type: diastolic Congestive heart failure chronicity: chronic Qualified Code(s): I50.32 - Chronic diastolic (congestive ) heart failure (3) ASHD (arteriosclerotic heart disease) Assessment/Plan: -quiescent -continue home regimen Code(s): I25.10 - ATHSCL HEART DISEASE OF [place] CORONARY ARTERY W/O ANG PCTRS (4) Atrial fibrillation Assessment/Plan: -continue amiodarone, toprol xl, and coumadin -monitor INR -rhythm controlled Code(s): I48.91 - UNSPECIFIED ATRIAL FIBRILLATION Qualifiers: Atrial fibrillation type: chronic Qualified Code(s): I48.2 - Chronic atrial fibrillation (5) HTN (hypertension) Assessment/Plan: -elevated, suspect secondary to steroids -continue home regimen -will need outpatient follow up Code(s): I10 - ESSENTIAL (PRIMARY) HYPERTENSION (6) Pickwickian syndrome Assessment/Plan: -patient to use CPAP at night Code(s): E66.2 - MORBID (SEVERE) OBESITY WITH ALVEOLAR HYPOVENTILATION Dispo -plan for discharge tomorrow
[2017-09-10] MEDS: AMIODARONE HCL 200 MG TABLET (FP) PO SCH (14:15)
[2017-09-10] MEDS: ATORVASTATIN CA 40 MG TABLET (FP) PO SCH (23:01)
[2017-09-10] MEDS: DOCUSATE SODIUM 100 MG CAPSULE (FP) PO SCH (23:01)
[2017-09-10] MEDS: GABAPENTIN 300 MG CAPSULE (FP) PO SCH (23:02)
[2017-09-11] MEDS: ALBUTEROL SO4 2.5/IPRATROPIUM 0.5 INH SOL 3 ML VIAL.NEB. NEB SCH ×2 (06:15)
[2017-09-11] MEDS: FUROSEMIDE 40 MG TABLET (FP) PO SCH (10:00)
[2017-09-11] MEDS: METOPROLOL SUCCINATE 25 MG TAB.SR.24H (FP) PO SCH (10:00)
[2017-09-11] MEDS: guaiFENesin/D-METHORPHAN HB 1 EACH TAB.ER.12H PO SCH (10:00)
[2017-09-11] MEDS: methylPREDNISolone NA SUCC 40 MG/1 ML VIAL IVPUSH SCH (10:00)
[2017-09-11] MEDS: AMIODARONE HCL 200 MG TABLET (FP) PO SCH (10:11)
[2017-09-11] MEDS: CEFTRIAXONE 1 G/50 ML PREMIX 50 ML IVPB SCH (10:11)
[2017-09-11] MEDS: VALSARTAN 80 MG TABLET (UD) PO SCH (10:12)
[2017-09-11] MEDS: POTASSIUM CHLORIDE TABS 20 MEQ TABLET.ER (FP) PO SCH (10:13)
[2017-09-11] MEDS: CHOLECALCIFEROL (VITAMIN D3) 1,000 UNIT TABLET (FP) PO SCH (10:14)
[2017-09-11] MEDS: VITAMIN B COMPLEX W/C COMBO TABLET (FP) PO SCH (10:14)
[2017-09-11] MEDS: SERTRALINE HCL 25 MG TABLET (FP) PO SCH (10:15)
[2017-09-11] MEDS ORDERED: ALBUTEROL SO4 2.5/IPRATROPIUM 0.5 INH SOL 3 ML VIAL.NEB. NEB SCH (10:23)
[2017-09-11] MEDS ORDERED: PT OWN MED DRAWER 7, Y5N ONE ×2 (10:56)
[2017-09-11] MEDS: POLYETHYLENE GLYCOL 3350 119 GM BTL PO SCH (11:08)
[2017-09-11] MEDS: MULTIVITAMINS THER W-MINERALS COMBO TABLET (FP) PO SCH (11:09)
--- NOTE | 2017-09-11 11:28 | DS ---
Physical Examination Vital Signs: Vital Signs Temperature 36.3 C L 09/11/17 05:48 Pulse Rate 62 09/11/17 05:48 Respiratory Rate 20 09/11/17 05:48 Blood Pressure 148/73 09/11/17 05:48 O2 Sat by Pulse Oximetry (%) 95 09/10/17 20:52 Labs: CBC, BMP 09/10/17 07:00 09/10/17 07:00 Discharge Summary Reason For Visit: PNEUMONIA Current Active Problems ASHD (arteriosclerotic heart disease) (Acute) Acute bronchitis (Acute) Asthma (Acute) Atrial fibrillation (Acute) CHF (congestive heart failure) (Acute) HTN (hypertension) (Acute) Pickwickian syndrome (Acute) Pneumonia (Acute) Condition: Good - Instructions Diet, Activity, Other Instructions: resume previous diet and activity Referrals: Adams Vidal MD [Primary Care Provider] - Kerwin Guardado MD [Staff Physician] - Disposition: [facility]/HOME HEALTH CARE - Home Medications Comprehensive Discharge Medication List: Ambulatory Orders Atorvastatin Ca [Lipitor] 40 mg PO HS #0 tablet 08/16/13 Docusate Sodium [Colace -] 100 mg PO DAILY #0 capsule 08/16/13 Multivit-Min/FA/Lycopene/Lut [Centrum Silver Tablet] 1 each PO DAILY #0 tablet 08/16/13 Sertraline HCl [Zoloft -] 25 mg PO DAILY #0 tablet 08/16/13 Vitamin B Complex [B Complex] 1 each PO DAILY #0 tablet 08/16/13 Amiodarone HCl [Cordarone -] 100 mg PO DAILY 09/05/17 Cholecalciferol (Vitamin D3) [Vitamin D3] 1,000 unit PO DAILY 09/05/17 Gabapentin 300 mg PO HS 09/05/17 Metoprolol Succinate [Toprol XL -] 25 mg PO DAILY 09/05/17 Potassium Chloride [K-Dur -] 20 meq PO DAILY 09/05/17 Valsartan [Diovan] 80 mg PO DAILY 09/05/17 Warfarin Na [Coumadin -] 0 mg PO DAILY@1800 09/05/17 Furosemide [Lasix] 80 mg PO DAILY 09/08/17 Albuterol 2.5/Ipratropium 0.5 [Duoneb -] 1 amp NEB QID PRN #30 amp 09/11/17 Nebulizer and Compressor [Easy Air Compressor Nebulizer] 1 each ASDIR #1 each 09/11/17 Prednisone [Deltasone -] 5 mg PO ASDIR #78 tab 09/11/17
[2017-09-11 14:59] VITALS: BP 153/61; PULSE 53; TEMP 98
== END 2017-09-11 13:24 | disposition home health service (06) | DRG 191 ==
LOC: JER 14:05 → JERBED 20:57 → J7W 09-07 15:42
PROVIDERS: ADMIT Internal Medicine; ATTEND Internal Medicine
DX: J44.1 Chronic obstructive pulmonary disease with (acute) exacerbation (principal); Z68.41 Body mass index [BMI] 40.0-44.9, adult; I50.32 Chronic diastolic (congestive) heart failure; E66.2 Morbid (severe) obesity with alveolar hypoventilation; J20.9 Acute bronchitis, unspecified; J44.0 Chronic obstructive pulmonary disease with (acute) lower respiratory infection; E78.5 Hyperlipidemia, unspecified; I10 Essential (primary) hypertension; G47.30 Sleep apnea, unspecified; K59.09 Other constipation; E88.09 Other disorders of plasma-protein metabolism, not elsewhere classified; E66.8 Other obesity; I25.10 Atherosclerotic heart disease of native coronary artery without angina pectoris; D64.9 Anemia, unspecified; I27.20 Pulmonary hypertension, unspecified; I11.0 Hypertensive heart disease with heart failure; I48.2 Chronic atrial fibrillation; Z96.642 Presence of left artificial hip joint; Z86.711 Personal history of pulmonary embolism; Z96.653 Presence of artificial knee joint, bilateral
CPT/HCPCS: 36415; 71045-TC; 80048; 80053; 81003; 81015; 82550; 83605; 83735; 84100; 84484; 85025; 85610; 85730; 86850; 86900; 86901; 87040; 87086; 87186; 87804; 93005; 93010; 93306-TC; 94640; 94660; 97116-GP; 97161-GP; 99285-25